=== PATIENT | male | born 1935 | race Caucasian/White ===

== ENCOUNTER 2017-01-31 08:00 | Outpatient (CLI) | payer MEDICARE | END 2017-01-31 08:01 | disposition home or self-care (01) | DX: I25.10 Atherosclerotic heart disease of native coronary artery without angina pectoris (principal); G60.9 Hereditary and idiopathic neuropathy, unspecified; I50.9 Heart failure, unspecified; C67.9 Malignant neoplasm of bladder, unspecified ==

== ENCOUNTER 2017-06-17 16:16 | Outpatient (CLI) | payer MEDICARE ==
[2017-06-17 19:53] LABS: BASOPHILS % (AUTO) 0.3 %; EOSINOPHILS # (AUTO) 0.3 10^3/uL (0.0-0.7); EOSINOPHILS % (AUTO) 3.3 %; HCT - HEMATOCRIT 43.1 % (42.0-52.0); HGB - HEMOGLOBIN 14.3 g/dL (14.0-18.0); LYMPHOCYTES # (AUTO) 1.7 10^3/uL (1.5-3.5); LYMPHOCYTES % (AUTO) 18.5 %; MEAN CORPUSCULAR HEMOGLOBIN 31.8 pg (27.0-31.0); MEAN CORPUSCULAR HGB CONC 33.1 g/dL (32.0-36.0); MEAN CORPUSCULAR VOLUME 96.1 fL (80.0-94.0); MEAN PLATELET VOLUME 10.6 fL (7.4-11.4); MONOCYTES # (AUTO) 0.9 10^3/uL (0.0-1.0); MONOCYTES % (AUTO) 9.6 %; NEUTROPHILS # (AUTO) 6.3 10^3/uL (1.5-6.6); NEUTROPHILS % (AUTO) 68.3 %; RED BLOOD COUNT 4.48 10^6/uL (4.70-6.10); RED CELL DISTRIBUTION WIDTH 14.2 % (12.0-15.0); UNCORRECTED WHITE BLOOD COUNT 9.3 x10^3/uL; WHITE BLOOD COUNT 9.3 x10^3/uL (4.8-10.8)
[2017-06-17 20:02] LABS: BILIRUBIN,TOTAL 0.9 mg/dL (0.2-1.0); CALCIUM 9.4 mg/dL (8.5-10.3); CREATININE 1.2 mg/dL (0.6-1.2); POTASSIUM 4.1 mmol/L (3.5-5.0); TOTAL PROTEIN 7.3 g/dL (6.7-8.2)
== END 2017-06-17 16:17 | disposition home or self-care (01) ==
LOC: LAB.WCP 16:16
PROVIDERS: ATTEND Family Medicine
DX: R14.0 Abdominal distension (gaseous) (principal)
CPT/HCPCS: 36415; 80053; 85025

== ENCOUNTER 2017-07-23 13:25 | Outpatient (CLI) | payer MEDICARE ==
[2017-07-23 20:00] LABS: BASOPHILS # (AUTO) 0.1 10^3/uL (0.0-0.1); BASOPHILS % (AUTO) 0.7 %; EOSINOPHILS # (AUTO) 0.3 10^3/uL (0.0-0.7); HCT - HEMATOCRIT 43.8 % (42.0-52.0); HGB - HEMOGLOBIN 14.1 g/dL (14.0-18.0); LYMPHOCYTES # (AUTO) 1.3 10^3/uL (1.5-3.5); MEAN CORPUSCULAR HGB CONC 32.2 g/dL (32.0-36.0); MEAN CORPUSCULAR VOLUME 96.2 fL (80.0-94.0); MEAN PLATELET VOLUME 10.9 fL (7.4-11.4); MONOCYTES # (AUTO) 0.8 10^3/uL (0.0-1.0); MONOCYTES % (AUTO) 7.6 %; NEUTROPHILS # (AUTO) 8.6 10^3/uL (1.5-6.6); NEUTROPHILS % (AUTO) 76.7 %; RED BLOOD COUNT 4.56 10^6/uL (4.70-6.10); RED CELL DISTRIBUTION WIDTH 14.2 % (12.0-15.0); UNCORRECTED WHITE BLOOD COUNT 11.2 x10^3/uL; WHITE BLOOD COUNT 11.2 x10^3/uL (4.8-10.8)
[2017-07-23 20:05] LABS: BILIRUBIN,TOTAL 0.9 mg/dL (0.2-1.0); BUN - BLOOD UREA NITROGEN 32 mg/dL (6-20); CALCIUM 9.4 mg/dL (8.5-10.3); CARBON DIOXIDE - CO2 27 mmol/L (21-32); CHLORIDE 104 mmol/L (101-111); CREATININE 1.2 mg/dL (0.6-1.2); GFR - MDRD 58 (>89); GLUCOSE 130 mg/dL (70-100); POTASSIUM 4.1 mmol/L (3.5-5.0); SODIUM 139 mmol/L (135-145); TOTAL PROTEIN 7.8 g/dL (6.7-8.2)
== END 2017-07-23 13:26 | disposition home or self-care (01) ==
LOC: LAB.WCP 13:25
PROVIDERS: ATTEND Family Medicine
DX: R53.83 Other fatigue (principal)
CPT/HCPCS: 36415; 80053; 84443; 85025

== ENCOUNTER → 2018-10-02 | Outpatient (CLI) | payer MEDICARE ==
[2018-10-02 13:17] LABS: BASOPHILS # (AUTO) 0.1 10^3/uL (0.0-0.1); BASOPHILS % (AUTO) 0.5 %; EOSINOPHILS # (AUTO) 0.3 10^3/uL (0.0-0.7); EOSINOPHILS % (AUTO) 2.2 %; HGB - HEMOGLOBIN 14.9 g/dL (14.0-18.0); LYMPHOCYTES # (AUTO) 2.3 10^3/uL (1.5-3.5); MEAN CORPUSCULAR HEMOGLOBIN 31.8 pg (27.0-31.0); MEAN CORPUSCULAR HGB CONC 33.1 g/dL (32.0-36.0); MEAN CORPUSCULAR VOLUME 96.2 fL (80.0-94.0); MEAN PLATELET VOLUME 10.1 fL (7.4-11.4); MONOCYTES # (AUTO) 0.8 10^3/uL (0.0-1.0); MONOCYTES % (AUTO) 7.1 %; NEUTROPHILS # (AUTO) 8.5 10^3/uL (1.5-6.6); NEUTROPHILS % (AUTO) 71.2 %; PLT - PLATELET COUNT 162 10^3/uL (130-450); RED CELL DISTRIBUTION WIDTH 14.6 % (12.0-15.0)
[2018-10-02 13:32] LABS: ALBUMIN 4.2 g/dL (3.2-5.5); ALBUMIN/GLOBULIN RATIO 1.2 (1.0-2.2); ALKALINE PHOSPHATASE 72 IU/L (42-121); ALT ALANINE AMINOTRANSFERASE 20 IU/L (10-60); AST ASPARTATE AMINOTRANSFERASE 27 IU/L (10-42); BILIRUBIN,TOTAL 0.9 mg/dL (0.2-1.0); BUN - BLOOD UREA NITROGEN 30 mg/dL (6-20); CALCIUM 9.5 mg/dL (8.5-10.3); CARBON DIOXIDE - CO2 28 mmol/L (21-32); CHLORIDE 107 mmol/L (101-111); CHOL/HDL RATIO 3.9 (<5.0); CHOLESTEROL 148 mg/dL; CREATININE 1.1 mg/dL (0.6-1.2); GFR - MDRD 64 (>89); GLUCOSE 97 mg/dL (70-100); HDL CHOLESTEROL 38 mg/dL; LDL CHOLESTEROL,CALCULATED 89 mg/dL; LDL/HDL RATIO 2.3 (<3.6); SODIUM 144 mmol/L (135-145); TOTAL PROTEIN 7.7 g/dL (6.7-8.2); VLDL CHOLESTEROL 21 mg/dL
== END ==
LOC: LAB.WCP 09:45
PROVIDERS: ATTEND Family Medicine
DX: I50.9 Heart failure, unspecified (principal); I10 Essential (primary) hypertension; E78.5 Hyperlipidemia, unspecified
CPT/HCPCS: 36415; 80053; 80061; 83721; 84443; 85025

== ENCOUNTER 2018-10-23 08:00 | Outpatient (CLI) | payer MEDICARE ==
[2018-10-23 13:14] LABS: BASOPHILS % (AUTO) 0.4 %; EOSINOPHILS # (AUTO) 0.3 10^3/uL (0.0-0.7); EOSINOPHILS % (AUTO) 3.3 %; HGB - HEMOGLOBIN 14.8 g/dL (14.0-18.0); LYMPHOCYTES # (AUTO) 1.6 10^3/uL (1.5-3.5); LYMPHOCYTES % (AUTO) 18.6 %; MEAN CORPUSCULAR HEMOGLOBIN 32.2 pg (27.0-31.0); MEAN CORPUSCULAR HGB CONC 33.5 g/dL (32.0-36.0); MEAN CORPUSCULAR VOLUME 96.3 fL (80.0-94.0); MEAN PLATELET VOLUME 10.8 fL (7.4-11.4); MONOCYTES # (AUTO) 0.9 10^3/uL (0.0-1.0); MONOCYTES % (AUTO) 10.5 %; NEUTROPHILS # (AUTO) 5.7 10^3/uL (1.5-6.6); NEUTROPHILS % (AUTO) 67.2 %; PLT - PLATELET COUNT 150 10^3/uL (130-450); RED BLOOD COUNT 4.59 10^6/uL (4.70-6.10); RED CELL DISTRIBUTION WIDTH 14.7 % (12.0-15.0); WHITE BLOOD COUNT 8.4 x10^3/uL (4.8-10.8)
[2018-10-23 14:00] LABS: PLATELET ESTIMATE, MANUAL NORMAL (130-450,000) (NORMAL); PLATELET MORPHOLOGY 1+ GIANT PLATELETS (NORMAL); RBC MORPHOLOGY (MULTIPLE) NORMAL APPEARANCE (NORMAL)
== END 2018-10-23 23:59 ==
LOC: LAB.WCP 08:00
PROVIDERS: ATTEND Family Medicine
DX: Z79.01 Long term (current) use of anticoagulants (principal)
CPT/HCPCS: 36415; 85025

== ENCOUNTER 2019-02-05 08:00 | Outpatient (CLI) | payer MEDICARE | END 2019-02-05 23:59 | disposition home or self-care (01) | LOC: LAB.WCP 08:00 | PROVIDERS: ATTEND Family Medicine | DX: I48.0 Paroxysmal atrial fibrillation (principal); Z79.01 Long term (current) use of anticoagulants | CPT/HCPCS: 81025 ==

== ENCOUNTER 2019-03-05 08:00 | Outpatient (CLI) | payer MEDICARE | END 2019-03-05 23:59 | disposition home or self-care (01) | LOC: LAB.WCP 08:00 | PROVIDERS: ATTEND Family Medicine | DX: I48.0 Paroxysmal atrial fibrillation (principal); Z79.01 Long term (current) use of anticoagulants ==

== ENCOUNTER 2019-03-11 10:23 | Day surgery (SDC) | payer MEDICARE ==
[~2019-03-11 10:23] MED LIST: CYCLOPENTOLATE 1% OPHTH DROPS 2 ML ONE; KETOROLAC 0.45% OPHTH DROPS ONE; PHENYLEPHRINE 2.5% OPHTH 2 ML DROPS ONE; PROPARACAINE 0.5% OPHTH DROPS 15 ML ONE
[2019-03-11] MEDS ORDERED: PROPARACAINE 0.5% OPHTH DROPS 15 ML LEFTEYE ONE (10:40)
[2019-03-11] MEDS ORDERED: KETOROLAC 0.45% OPHTH DROPS LEFTEYE ONE (10:40)
[2019-03-11] MEDS ORDERED: PHENYLEPHRINE 2.5% OPHTH 2 ML DROPS LEFTEYE ONE (10:40)
[2019-03-11] MEDS ORDERED: CYCLOPENTOLATE 1% OPHTH DROPS 2 ML LEFTEYE ONE (10:40)
--- NOTE | 2019-03-11 10:49 | ANESTHESIA ---
Pre-Anesthesia VS, & Labs - Diagnosis Left senile combined cataract - Procedure Left phaco with IOL implant Vital Signs: Temp Pulse Resp BP Pulse Ox 36.4 C L 77 22 142/90 H 96 03/11/19 10:31 03/11/19 10:31 03/11/19 10:31 03/11/19 10:31 03/11/19 10:31 Height 6 ft 1 in Weight (kg) 122.9 kg - NPO >8 hours, Other (Water with pills) - Lab Results Lab results reviewed: Yes Home Medications and Allergies Home Medications: Ambulatory Orders Allopurinol 300 mg PO DAILY 03/11/19 Atorvastatin Calcium 20 mg PO DAILY 03/11/19 Metoprolol Tartrate 100 mg PO BID 03/11/19 Warfarin Sodium 7.5 mg PO 03/11/19 Warfarin Sodium 10 mg PO 03/11/19 Allergies/Adverse Reactions: Allergies Allergy/AdvReac Type Severity Reaction Status Date / Time No Known Drug Allergies Allergy Verified 03/11/19 10:37 Anes History & Medical History - Anesthetic History Anesthesia Complications: reports: No previous complications Family history of Anesthesia Complications: Denies Family history of Malignant Hyperthermia: Denies - Medical History Cardiovascular: reports: None Pulmonary: reports: Sleep apnea Gastrointestinal: reports: None Urinary: reports: None, Other (History bladder cancer) Neuro: reports: None, Other (Balance problems) Musculoskeletal: reports: Osteoarthritis Endocrine/Autoimmune: reports: None Blood Disorders: reports: None Skin: reports: None Smoking Status: Former smoker Psychosocial: reports: No issues indicated - Surgical History General: Other (Umbilical hernia repair) Urologic: Bladder surgery Exam General: Alert Dental: Dentures full Upper Mouth Opening: Greater than 4 Fingerbreadths Neck Mobility: Limited Mallampati classification: II Thyromental Distance: 4-6 cm Respiratory: Lungs clear Cardiovascular: Other (Irregular) Neurological: Normal speech Mental/Cognitive Status: Alert/Oriented X3 Cognitive Status: Within normal limits Plan Anesthesia Type: MAC Consent for Procedure(s) Verified and Reviewed: Yes Code Status: Attempt Resuscitation ASA classification: 3-Severe systemic disease Is this case an emergency?: No
[2019-03-11] MEDS ORDERED: LACTATED RINGERS 500 ML IV ONE (10:59)
[2019-03-11] MEDS ORDERED: VANCOMYCIN OPHTHALMI 8MG/0.8ML 8 MG/0.8 ML SYRINGE IO ONE ×2 (11:41)
[2019-03-11] MEDS ORDERED: BRIMONIDINE 0.2% OPHTH DROPS 5 ML OPTH ONE (11:41)
[2019-03-11] MEDS ORDERED: TRIAMCIN/MOXIFLOX OPHTHALMIC 0.6 ML VIAL IO ONE ×2 (11:41)
[2019-03-11] MEDS ORDERED: BSS/LIDOCAINE/EPINEPHRINE 1 ML SYRINGE IO ONE ×2 (11:41)
[2019-03-11] MEDS ORDERED: EPINEPHrine 1 MG/ML AMP IVP ONE (11:41)
[2019-03-11] MEDS ORDERED: CHONDR SULF/HYALURONATE SYRINGE IO ONE (11:41)
[2019-03-11] MEDS ORDERED: TIMOLOL 0.5% OPHTH DROPS OPTH ONE (11:41)
[2019-03-11] MEDS ORDERED: MIDAZOLAM 2 MG/2 ML VIAL IVP ONE (11:53)
[2019-03-11] MEDS ORDERED: fentaNYL 100 MCG/2 ML VIAL IVP ONE (11:53)
[2019-03-11 12:03] VITALS: BP 141/88
--- NOTE | 2019-03-11 12:15 | OPERATIVE REPORT ---
DATE OF SERVICE: 03/11/2019 Physician: Reji Jorgensen MD PREOPERATIVE DIAGNOSIS: Visually significant cataract, left eye. This was his first cataract surger y. POSTOPERATIVE DIAGNOSIS: Visually significant cataract, left eye. This was his first with surgery. DESCRIPTION OF PROCEDURE: Phacoemulsification with posterior chamber intraocular lens implant, left eye. SURGEON: Reji Jorgensen MD ANESTHESIA: Monitored anesthesia care. COMPLICATIONS: None. OPERATIVE INDICATIONS: This is an 83-year-old man with progressive vision loss in the left eye due t o 3+ nuclear sclerotic cataract. Best corrected visual acuity was 20/40, with glare to 20/70 in the left eye. Indications for surgery are overall decrease in vision, difficulty seeing words on the com puter screen, difficulty reading, difficulty seeing words, closed caption or game scores on TV, and d ifficulty seeing street signs. He was consented at length concerning risks and benefits of cataract surgery, after which he expressed a desire to proceed with surgery. OPERATIVE PROCEDURE: The patient was taken into OR #3 and placed under monitored anesthesia care. A surgical timeout was conducted confirming correct patient, correct procedure, and correct surgical s ite. He was given topical anesthesia, prepped and draped in the usual sterile fashion. The eye was entered at the 6 and 3 o'clock positions. Intracameral Shugarcaine was injected into the anterior ch anthony, followed by Viscoat. A continuous-tear curvilinear capsulorrhexis was performed. The nucleus was hydrodissected and phacoemulsified. The cortex was evacuated using an infusion and aspiration. Provisc was injected in the capsular bag, and a 19.0 diopter intraocular lens inserted in the bag. Approximately 0.8 mL of a mixture of triamcinolone, moxifloxacin, and vancomycin was injected subconj unctivally in the superior quadrant for infection and inflammation prophylaxis. I and A was used to evacuate the viscoelastic materials. The eye was inflated to physiologic pressure using balanced steve t solution and found to be watertight. The patient was taken from the operating room in good conditi on and given postoperative instructions. TD: 03/11/2019 12:12
== END 2019-03-11 10:24 | disposition home or self-care (01) ==
LOC: SDS 10:23
PROVIDERS: ATTEND Ophthalmology
PROC: 08RK3JZ Replacement of Left Lens with Synthetic Substitute, Percutaneous Approach (ICD-10-PCS; principal; 2019-03-11 11:30)
DX: H25.12 Age-related nuclear cataract, left eye (principal); I10 Essential (primary) hypertension; I48.91 Unspecified atrial fibrillation; G47.33 Obstructive sleep apnea (adult) (pediatric); Z87.891 Personal history of nicotine dependence
CPT/HCPCS: 66984; A9270; J3490; V2632

== ENCOUNTER 2019-03-19 08:00 | Outpatient (CLI) | payer MEDICARE | END 2019-03-19 08:01 | disposition home or self-care (01) | LOC: LAB.WCP 08:00 | PROVIDERS: ATTEND Family Medicine | DX: I48.91 Unspecified atrial fibrillation (principal); Z79.01 Long term (current) use of anticoagulants ==

== ENCOUNTER 2019-03-26 08:00 | Outpatient (CLI) | payer MEDICARE | END 2019-03-26 23:59 | disposition home or self-care (01) | LOC: LAB.WCP 08:00 | PROVIDERS: ATTEND Family Medicine | DX: I48.0 Paroxysmal atrial fibrillation (principal); Z79.01 Long term (current) use of anticoagulants ==

== ENCOUNTER 2019-04-09 08:00 | Outpatient (CLI) | payer MEDICARE | END 2019-04-09 23:59 | disposition home or self-care (01) | LOC: LAB.WCP 08:00 | PROVIDERS: ATTEND Family Medicine | DX: I48.91 Unspecified atrial fibrillation (principal); Z79.01 Long term (current) use of anticoagulants ==

== ENCOUNTER 2019-04-30 08:00 | Outpatient (CLI) | payer MEDICARE | END 2019-04-30 23:59 | disposition home or self-care (01) | LOC: LAB.WCP 08:00 | PROVIDERS: ATTEND Family Medicine | DX: I48.91 Unspecified atrial fibrillation (principal); Z79.01 Long term (current) use of anticoagulants ==

== ENCOUNTER 2019-04-30 08:55 | Outpatient (CLI) | payer MEDICARE ==
[2019-04-30 14:12] LABS: CHOL/HDL RATIO 4.4 (<5.0); CHOLESTEROL 135 mg/dL; HDL CHOLESTEROL 31 mg/dL; LDL CHOLESTEROL,CALCULATED 83 mg/dL; LDL/HDL RATIO 2.7 (<3.6); VLDL CHOLESTEROL 21 mg/dL
== END 2019-04-30 23:59 | disposition home or self-care (01) ==
LOC: LAB.WCP 08:55
PROVIDERS: ATTEND Hospitalist
DX: I25.10 Atherosclerotic heart disease of native coronary artery without angina pectoris (principal)
CPT/HCPCS: 36415; 80061; 83721

== ENCOUNTER 2019-05-13 09:11 | Day surgery (SDC) | payer MEDICARE ==
[2019-05-13] MEDS ORDERED: LACTATED RINGERS 500 ML IV ONE (09:24)
[2019-05-13] MEDS ORDERED: PROPARACAINE 0.5% OPHTH DROPS 15 ML RIGHTEYE ONE ×2 (09:25→10:22)
[2019-05-13] MEDS ORDERED: KETOROLAC 0.45% OPHTH DROPS RIGHTEYE ONE (09:25)
[2019-05-13] MEDS ORDERED: PHENYLEPHRINE 2.5% OPHTH 2 ML DROPS RIGHTEYE ONE (09:25)
[2019-05-13] MEDS ORDERED: CYCLOPENTOLATE 1% OPHTH DROPS 2 ML RIGHTEYE ONE (09:25)
--- NOTE | 2019-05-13 09:40 | ANESTHESIA ---
Pre-Anesthesia VS, & Labs - Diagnosis R nuclear sclerotic - Procedure R extraction cataract w/IOL Vital Signs: Temp Pulse Resp BP Pulse Ox 36.2 C L 61 12 147/92 H 97 05/13/19 09:28 05/13/19 09:28 05/13/19 09:28 05/13/19 09:28 05/13/19 09:28 Height 6 ft 1 in Weight (kg) 122.6 kg - NPO >8 hours Last Fluid Intake: sips w meds this AM Home Medications and Allergies Allopurinol 300 mg PO DAILY 03/11/19 Atorvastatin Calcium 20 mg PO DAILY 03/11/19 Metoprolol Tartrate 100 mg PO BID 03/11/19 Warfarin Sodium 7.5 mg PO DAILY 03/11/19 Warfarin Sodium 10 mg PO DAILY 03/11/19 Allergies/Adverse Reactions: Allergies Allergy/AdvReac Type Severity Reaction Status Date / Time No Known Drug Allergies Allergy Verified 03/11/19 10:37 Anes History & Medical History - Anesthetic History Anesthesia Complications: reports: No previous complications Family history of Anesthesia Complications: Denies Family history of Malignant Hyperthermia: Denies - Medical History Cardiovascular: reports: None Pulmonary: reports: Sleep apnea Gastrointestinal: reports: None Urinary: reports: None, Other Neuro: reports: None, Other (Balance problems) Musculoskeletal: reports: Osteoarthritis Endocrine/Autoimmune: reports: None Blood Disorders: reports: None Skin: reports: None Smoking Status: Former smoker - Surgical History General: Other Urologic: Bladder surgery Exam General: Alert, Oriented x3, Cooperative Dental: Dentures full Upper, Other (recent nose bleed) Mouth Openin Fingerbreadth Neck Mobility: Reduced Mallampati classification: II Thyromental Distance: 4-6 cm Respiratory: Lungs clear, Normal breath sounds Cardiovascular: Other (AF (chronic)) Neurological: Normal speech Mental/Cognitive Status: Alert/Oriented X3 Cognitive Status: Within normal limits Plan Anesthesia Type: MAC Consent for Procedure(s) Verified and Reviewed: Yes Code Status: Attempt Resuscitation ASA classification: 3-Severe systemic disease Is this case an emergency?: No
[2019-05-13] MEDS ORDERED: EPINEPHrine 1 MG/ML AMP IVP ONE (10:21)
[2019-05-13] MEDS ORDERED: CHONDR SULF/HYALURONATE SYRINGE IO ONE (10:21)
[2019-05-13] MEDS ORDERED: BRIMONIDINE 0.2% OPHTH DROPS 5 ML OPTH ONE (10:21)
[2019-05-13] MEDS ORDERED: TIMOLOL 0.5% OPHTH DROPS OPTH ONE (10:21)
[2019-05-13] MEDS ORDERED: BSS/LIDOCAINE/EPINEPHRINE 1 ML SYRINGE IO ONE (10:22)
[2019-05-13] MEDS ORDERED: TRIAMCIN/MOXIFLOX OPHTHALMIC 0.6 ML VIAL IO ONE ×2 (10:22→11:12)
[2019-05-13] MEDS ORDERED: MIDAZOLAM 2 MG/2 ML VIAL IVP ONE (10:23)
[2019-05-13] MEDS ORDERED: VANCOMYCIN OPHTHALMI 8MG/0.8ML 8 MG/0.8 ML SYRINGE IO ONE ×2 (10:23→11:12)
[2019-05-13 10:50] VITALS: BP 135/74
--- NOTE | 2019-05-13 11:07 | OPERATIVE REPORT ---
DATE OF SERVICE: 05/13/2019 Physician: Reji Jorgensen MD PREOPERATIVE DIAGNOSIS: Visually significant cataract, right eye. Cataract surgery was performed on the left eye 03/11/2019. POSTOPERATIVE DIAGNOSIS: Visually significant cataract, right eye. Cataract surgery was performed o n the left eye 03/11/2019. PROCEDURE: Phacoemulsification with posterior chamber intraocular lens implant, right eye. SURGEON: Reji Jorgensen MD ANESTHESIA: Monitored anesthesia care. COMPLICATIONS: None. OPERATIVE INDICATIONS: This is an 84-year-old man with progressive vision progressive vision loss in the right eye due to 3+ nuclear sclerotic cataract. Best corrected visual acuity was 20/30 with gla re to 20/125 in the right eye. Indications for surgery were difficulty seeing words on the computer screen and difficulty reading, difficulty seeing words, closed captions or game scores on TV and diff iculty seeing street signs. He was consented at length concerning risks and benefits of cataract jeremy julito, after which he expressed a desire to proceed with surgery. OPERATIVE PROCEDURE: Patient was taken to OR #3 and placed under monitored anesthesia care. A surgi reyna timeout was conducted confirming the correct patient, correct procedure, and correct surgical sit e. He was given topical anesthesia and then prepped and draped in the usual sterile fashion. The ey e was entered at the 12 and 9 o'clock positions. Intracameral Shugarcaine was injected into the ante rior chamber, followed by Viscoat. A continuous-tear curvilinear capsulorrhexis was performed. The nucleus was hydrodissected and phacoemulsified. The cortex was evacuated using automated infusion an d aspiration. Provisc was injected into the capsular bag, and a 19.0 diopter intraocular lens was in serted into the bag. Approximately 0.8 mL of a mixture of triamcinolone, moxifloxacin and vancomycin was injected subconjunctivally in the superior quadrant for infection and inflammation prophylaxis. I and A was used to evacuate the viscoelastic material and the eye was inflated to physiologic press ure using balanced salt solution and found to be watertight. The patient was taken from the [facility] room in good condition and given postoperative instructions. TD: 05/13/2019 10:43
[2019-05-13] MEDS ORDERED: BRIMONIDINE 0.2% OPHTH DROPS 5 ML ONE (11:12)
[2019-05-13] MEDS ORDERED: TIMOLOL 0.5% OPHTH DROPS ONE (11:12)
[2019-05-13] MEDS ORDERED: BSS/LIDOCAINE/EPINEPHRINE 1 ML SYRINGE ONE (11:12)
[2019-05-13] MEDS ORDERED: EPINEPHrine 1 MG/ML AMP ONE (11:12)
== END 2019-05-13 09:12 | disposition home or self-care (01) ==
LOC: SDS 09:11
PROVIDERS: ATTEND Ophthalmology
PROC: 08RJ3JZ Replacement of Right Lens with Synthetic Substitute, Percutaneous Approach (ICD-10-PCS; principal; 2019-05-13 10:30)
DX: H25.11 Age-related nuclear cataract, right eye (principal); I48.91 Unspecified atrial fibrillation; I10 Essential (primary) hypertension; G47.30 Sleep apnea, unspecified; M19.90 Unspecified osteoarthritis, unspecified site; Z87.891 Personal history of nicotine dependence; Z79.01 Long term (current) use of anticoagulants
CPT/HCPCS: 66984; A9270; J3490; V2632

== ENCOUNTER 2019-06-02 13:47 | Outpatient (CLI) | payer MEDICARE ==
[2019-06-02 19:26] LABS: ALBUMIN 4.2 g/dL (3.2-5.5); ALBUMIN/GLOBULIN RATIO 1.2 (1.0-2.2); BILIRUBIN,TOTAL 1.3 mg/dL (0.2-1.0); CALCIUM 9.6 mg/dL (8.5-10.3); CREATININE 1.2 mg/dL (0.6-1.2); TOTAL PROTEIN 7.8 g/dL (6.7-8.2)
== END 2019-06-02 13:48 | disposition home or self-care (01) ==
LOC: LAB.WCP 13:47
PROVIDERS: ATTEND Family Medicine
DX: I10 Essential (primary) hypertension (principal)
CPT/HCPCS: 36415; 80053

== ENCOUNTER 2019-06-10 09:00 | Outpatient (CLI) | payer MEDICARE ==
[2019-06-10 13:03] LABS: CALCIUM 9.7 mg/dL (8.5-10.3); CREATININE 1.2 mg/dL (0.6-1.2)
[2019-06-14 15:36] LABS: ALBUMIN 3.7 g/dL (3.8-4.8); ALPHA 1 GLOBULIN 0.4 g/dL (0.2-0.3); ALPHA 2 GLOBULIN 0.9 g/dL (0.5-0.9); BETA 1 GLOBULIN 0.4 g/dL (0.4-0.6); BETA 2 GLOBULIN 0.4 g/dL (0.2-0.5); GAMMA GLOBULIN 1.1 g/dL (0.8-1.7)
== END 2019-06-10 09:01 | disposition home or self-care (01) ==
LOC: LAB.WCP 09:00
PROVIDERS: ATTEND Family Medicine
DX: M60.9 Myositis, unspecified (principal)
CPT/HCPCS: 36415; 80048; 81599; 82550; 82570; 84155; 84156; 84165; 84166; 85651

== ENCOUNTER 2019-07-02 08:00 | Outpatient (CLI) | payer MEDICARE | END 2019-07-02 23:59 | disposition home or self-care (01) | LOC: LAB.WCP 08:00 | PROVIDERS: ATTEND Family Medicine | DX: I48.91 Unspecified atrial fibrillation (principal); Z79.01 Long term (current) use of anticoagulants ==

== ENCOUNTER 2019-07-30 08:00 | Outpatient (CLI) | payer MEDICARE | END 2019-07-30 23:59 | disposition home or self-care (01) | LOC: LAB.WCP 08:00 | PROVIDERS: ATTEND Family Medicine | DX: I48.0 Paroxysmal atrial fibrillation (principal); Z79.01 Long term (current) use of anticoagulants ==

== ENCOUNTER 2019-08-04 07:09 | Outpatient (CLI) | payer MEDICARE | END 2019-08-04 07:10 | disposition short-term general hospital (02) | LOC: EMS 07:09 | PROVIDERS: ATTEND Surgery | DX: R20.0 Anesthesia of skin (principal); R47.9 Unspecified speech disturbances | CPT/HCPCS: A0425; A0427; A0888 ==

== ENCOUNTER 2019-08-28 00:08 | Outpatient (CLI) | payer MEDICARE | END 2019-08-28 00:09 | disposition EMS.NT | LOC: EMS 00:08 | PROVIDERS: ATTEND Surgery | DX: Z03.89 Encounter for observation for other suspected diseases and conditions ruled out (principal) ==

== ENCOUNTER 2019-08-28 01:45 | Outpatient (CLI) | payer MEDICARE | END 2019-08-28 01:46 | disposition critical access hospital (66) | LOC: EMS 01:45 | PROVIDERS: ATTEND Surgery | DX: Z03.89 Encounter for observation for other suspected diseases and conditions ruled out (principal) | CPT/HCPCS: A0425; A0428; A0429 ==

== ENCOUNTER 2019-08-28 01:53 | Emergency (ER) | payer MEDICARE ==
--- NOTE | 2019-08-28 02:04 | ED Physician Documentation ---
History of Present Illness - Stated complaint Stated Complaint: AMS - Chief complaint Chief Complaint: Neuro - History obtained from History obtained from: Patient, Family, EMS - History of Present Illness Timing: Today - Additonal information Additional information: 84 y/o male recovering from neck surgery is a resident at [facility] after a 6 week hospitalization at [facility]. He has developed a problem with swallowing and he has a feeding tube in place. Today he had some medication down the tube and had coughing and choking after administration. He is brought here [facility] for diagnostics for aspiration pneumonia. Review of Systems Constitutional: reports: Fatigue. denies: Fever Eyes: denies: Decreased vision Ears: denies: Ear pain Nose: denies: Rhinorrhea / runny nose, Congestion Throat: denies: Sore throat Cardiac: denies: Chest pain / pressure, Palpitations, Pedal edema, Calf pain Respiratory: reports: Cough GI: denies: Abdominal Pain, Nausea, Vomiting : denies: Dysuria, Frequency PD PAST MEDICAL HISTORY - Past Medical History Cardiovascular: None Respiratory: Sleep apnea Neuro: None, Other (Balance problems) Endocrine/Autoimmune: None GI: None : None, Other HEENT: Chronic hearing loss, Other Psych: None Musculoskeletal: Osteoarthritis Derm: None - Past Surgical History General: Other - Present Medications Home Medications: Ambulatory Orders Medication Instructions Recorded Confirmed Allopurinol 300 mg PO DAILY 03/11/19 08/28/19 Warfarin Sodium 7.5 mg NG QPM 03/11/19 08/28/19 Warfarin Sodium 10 mg NG QPM 03/11/19 08/28/19 Acetaminophen 500 mg NG Q8HR PRN 08/28/19 08/28/19 Amox/Clav 875/125 [Augmentin 1 tab NG BID 08/28/19 08/28/19 875/125] Amoxicillin/Potassium Clav 10 ml PO BID #200 ml 08/28/19 [Amox-Clav 400-57 mg/5 ml Susp] Bisacodyl Supp [Dulcolax Supp] 10 mg NV PRN 08/28/19 Cholecalciferol (Vitamin D3) 1,000 unit NG DAILY 08/28/19 08/28/19 [Vitamin D3] Folic Acid 1 mg NG DAILY 08/28/19 08/28/19 Gabapentin 300 mg NG BID 08/28/19 08/28/19 Ipratropium/Albuterol Sulfate 3 ml IH Q4HR PRN 08/28/19 08/28/19 [Iprat-Albut 0.5-3(2.5) mg/3 ml] Lidocaine Patch 5% [Lidoderm Patch] 1 applic TOP DAILY 08/28/19 08/28/19 Melatonin 6 mg NG QPM 08/28/19 08/28/19 Metoprolol Succinate 100 mg NG BID 08/28/19 08/28/19 Polyethylene Glycol 3350 [Miralax] 17 packet NG DAILY 08/28/19 08/28/19 Sennosides [Senna Laxative] 2 tab NG BID 08/28/19 08/28/19 Tamsulosin HCl [Flomax] 0.8 mg NG DAILY 08/28/19 08/28/19 - Allergies Allergies/Adverse Reactions: Allergies Allergy/AdvReac Type Severity Reaction Status Date / Time lisinopril Allergy Unknown Verified 08/28/19 03:41 - Social History Smoking Status: Former smoker PD ED PE NORMAL - Vitals Vital signs reviewed: Yes - General General: Alert and oriented X 3, No acute distress, Well developed/nourished, Other (in a hard collar with an NG tube in place for feeding. ) - HEENT HEENT: Atraumatic, PERRL, EOMI - Neck Neck: Supple, no meningeal sign - Cardiac Cardiac: RRR, No murmur - Respiratory Respiratory: No respiratory distress, Other (rhonchi in the right base ) - Abdomen Abdomen: Soft, Non tender - Back Back: No CVA TTP, No spinal TTP - Derm Derm: Normal color, Warm and dry, No rash - Extremities Extremities: No deformity, No edema - Neuro Neuro: Alert and oriented X 3, facility service associate 2-12 intact, No motor deficit, No sensory deficit, Normal speech Eye Opening: Spontaneous Motor: Obeys Commands Verbal: Oriented GCS Score: 15 - Psych Psych: Normal mood, Normal affect Results - Vitals Vitals: Vital Signs - 24 hr 08/28/19 08/28/19 08/28/19 01:56 02:30 02:58 Temperature 37.4 C Heart Rate 98 104 H 106 H Respiratory 24 32 H 31 H Rate Blood Pressure 121/98 H 139/93 H 139/93 H O2 Saturation 89 L 97 95 08/28/19 03:33 Temperature Heart Rate 97 Respiratory 23 Rate Blood Pressure 135/91 H O2 Saturation 98 Oxygen O2 Source Nasal cannula Oxygen Flow Rate 2 - Labs Labs: Laboratory Tests 08/28/19 08/28/19 08/28/19 02:32 02:32 02:32 WBC 13.2 H RBC 3.77 L Hgb 11.9 L Hct 38.7 L MCV 102.7 H MCH 31.6 H MCHC 30.7 L RDW 15.2 H Plt Count 275 MPV 11.0 Neut # (Auto) [employer] Lymph # (Auto) [employer] Grundy # (Auto) [employer] Eos # (Auto) [employer] Baso # (Auto) [employer] Absolute Nucleated RBC [employer] Total Counted 100 Band Neuts % (Manual) 0 Abnorm Lymph % (Manual) 0 Nucleated RBC % [employer] Neutrophils # (Manual) 9.2 H Lymphocytes # (Manual) 1.6 Monocytes # (Manual) 0.9 Eosinophils # (Manual) 1.2 H Basophils # (Manual) 0.3 H Differential Comment MANUAL DIFFERENTIAL WBC Morphology NORMAL APPEARANCE Platelet Estimate NORMAL (130-450,000) Platelet Morphology NORMAL APPEARANCE RBC Morph Micro Appear NORMAL APPEARANCE Sodium 143 Potassium 5.1 H Chloride 101 Carbon Dioxide 32 Anion Gap 10.0 BUN 37 H Creatinine 1.0 Estimated GFR (MDRD) 71 L Glucose 112 H Lactic Acid 1.2 Calcium 9.7 Total Bilirubin 0.7 AST 31 ALT 45 Alkaline Phosphatase 108 Total Protein 8.1 Albumin 3.5 Globulin 4.6 H Albumin/Globulin Ratio 0.8 L Lipase 42 - Rads (name of study) chest 2 view Radiology: Prelim report reviewed (Impression: 1. Low lung volumes with bibasilar opacities, probably atelectasis. Mild enlargement of the cardiac silhouette, likely accentuated by low lung volumes.), EMP read indepedently, See rad report Procedures - IVC sono (time) 0300 Bedside IVC sono: IVC measures (cm) (1.22), Dehydration (est 1 liter deficit) PD MEDICAL DECISION MAKING - ED course Complexity details: reviewed old records, reviewed results, re-evaluated patient, considered differential, d/w patient, d/w family ED course: 84 y/o male s/p cervical procedure and subdural has a problem with swallowing and he has a feeding tube in place. Today he had an aspiration event and on exam he has rhonchi in the right base and appearance of infiltrate in the right base. He has not been getting his feedings today and he is now dehydrated. He is administered IV saline and unasyn IV and we will start him on some augmentin. The tube appears to end in the stomach and should be OK for use. Departure - Departure Disposition: 01 Home, Self Care Clinical Impression: Dehydration Aspiration pneumonia Qualifiers: Aspiration pneumonia type: unspecified Laterality: right Lung location: lower lobe of lung Qualified Code(s): J69.0 - Pneumonitis due to inhalation of food and vomit Condition: Stable Instructions: ED Dehydration, Aspiration Dysphagia, ED Pneumonia Adult Follow-Up: Aaron Young MD [Primary Care Provider] - Prescriptions: Amoxicillin/Potassium Clav [Amox-Clav 400-57 mg/5 ml Susp] 10 ml PO BID #200 ml Comments: The tube appears well positioned and is "OK" for use.
[2019-08-28 02:39] LABS: BASOPHILS % (AUTO) 0.6 %; EOSINOPHILS % (AUTO) 8.5 %; HGB - HEMOGLOBIN 11.9 g/dL (14.0-18.0); LYMPHOCYTES % (AUTO) 13.1 %; MEAN CORPUSCULAR HEMOGLOBIN 31.6 pg (27.0-31.0); MEAN CORPUSCULAR HGB CONC 30.7 g/dL (32.0-36.0); MEAN CORPUSCULAR VOLUME 102.7 fL (80.0-94.0); MONOCYTES % (AUTO) 9.7 %; NEUTROPHILS % (AUTO) 67.1 %; PLT - PLATELET COUNT 275 10^3/uL (130-450); RED BLOOD COUNT 3.77 10^6/uL (4.70-6.10); RED CELL DISTRIBUTION WIDTH 15.2 % (12.0-15.0); WHITE BLOOD COUNT 13.2 x10^3/uL (4.8-10.8)
[2019-08-28 02:44] LABS: ABNORMAL LYMPHS % (MANUAL) 0 %; BAND NEUTROPHILS % (MANUAL) 0 %
[2019-08-28 02:52] LABS: ALBUMIN 3.5 g/dL (3.2-5.5); ALBUMIN/GLOBULIN RATIO 0.8 (1.0-2.2); BILIRUBIN,TOTAL 0.7 mg/dL (0.2-1.0); CALCIUM 9.7 mg/dL (8.5-10.3); TOTAL PROTEIN 8.1 g/dL (6.7-8.2)
--- NOTE | 2019-08-28 02:56 | XRAY Report ---
Reason: right base rhonchi Procedure Date: 08/28/2019 Accession Number: [id number] / [id number] Procedure: XR - Chest 2 View X-Ray CPT Code: 27683 FULL RESULT: EXAM: CHEST RADIOGRAPHY EXAM DATE: 08/28/2019 02:31 AM. CLINICAL HISTORY: Right base rhonchi. COMPARISON: CXR dated 06/17/2017 3:34 PM. TECHNIQUE: 2 views. 3 images. FINDINGS: Lungs/Pleura: Low lung volumes with bibasilar opacities. No significant effusion or pneumothorax. Mediastinum: Mild enlargement of cardiac silhouette. No significant mediastinal widening allowing for limitations of exam. Other: None. IMPRESSION: 1. Low lung volumes with bibasilar opacities, probably atelectasis. 2. Mild enlargement of cardiac silhouette, likely accentuated by low lung volumes. RADIA
[2019-08-28 02:59] LABS: BASOPHILS # (MANUAL) 0.3 10^3/uL (0-0.1); BASOPHILS % (MANUAL) 2 %; EOSINOPHILS # (MANUAL) 1.2 10^3/uL (0-0.7); LYMPHOCYTES # (MANUAL) 1.6 10^3/uL (1.5-3.5); LYMPHOCYTES % (MANUAL) 12 %; MONOCYTES # (MANUAL) 0.9 10^3/uL (0.0-1.0); PLATELET ESTIMATE, MANUAL NORMAL (130-450,000) (NORMAL); PLATELET MORPHOLOGY NORMAL APPEARANCE (NORMAL); RBC MORPHOLOGY (MULTIPLE) NORMAL APPEARANCE (NORMAL)
[2019-08-28] MEDS ORDERED: SODIUM CHLORIDE 0.9% 1,000 ML IV ONE (03:12)
[2019-08-28 03:16] LABS: DIFFERENTIAL COMMENT MANUAL DIFFERENTIAL
[2019-08-28] MEDS ORDERED: AMPICILLIN/SULBACTAM 1.5 GM in SODIUM CHLORIDE 0.9% MINIBAG 100 ML IV STA (03:18)
[2019-08-28 03:58] VITALS: BP 110/96
== END 2019-08-28 04:22 | disposition home or self-care (01) ==
LOC: EDUNIT# → ED 01:53
DX: J69.0 Pneumonitis due to inhalation of food and vomit (principal); E86.0 Dehydration; Z98.890 Other specified postprocedural states; Z97.8 Presence of other specified devices; Z79.01 Long term (current) use of anticoagulants; Z87.891 Personal history of nicotine dependence
CPT/HCPCS: 36415; 71046; 80053; 83605; 83690; 85025; 87040; 99284

== ENCOUNTER 2019-08-28 04:26 | Outpatient (CLI) | payer MEDICARE | END 2019-08-28 04:27 | LOC: EMS 04:26 | PROVIDERS: ATTEND Surgery | DX: J69.0 Pneumonitis due to inhalation of food and vomit (principal); M43.22 Fusion of spine, cervical region; Z74.01 Bed confinement status ==

== ENCOUNTER 2019-09-07 10:41 | Outpatient (CLI) | payer MEDICARE | END 2019-09-07 10:42 | disposition critical access hospital (66) | LOC: EMS 10:41 | PROVIDERS: ATTEND Surgery | DX: R09.89 Other specified symptoms and signs involving the circulatory and respiratory systems (principal) ==

== ENCOUNTER 2019-09-07 10:49 | Emergency (ER) | payer MEDICARE ==
--- NOTE | 2019-09-07 11:49 | ED Physician Documentation ---
History of Present Illness - Stated complaint Stated Complaint: POSS ASPIRATION - Chief complaint Chief Complaint: Resp - History obtained from History obtained from: Patient, Family - History of Present Illness Timing: Today Pain level max: 0 Pain level now: 0 - Additonal information Additional information: 84-year-old male is currently residing at [facility] after neck surgery. He wears oxygen 24/7 there. They noticed that when he sleeps his oxygen levels decreased. His oxygen level decreased after a coughing episode today. No fevers. He is supposed to have a CPAP but does not have his machine. No vomiting. Nothing makes it better or worse. He is on warfarin. Was recently treated for a subdural hemorrhage as well. Family states that the subdural hemorrhage has not been reimaged since being placed back on the warfarin. Review of Systems Ten Systems: 10 systems reviewed and negative Constitutional: denies: Fever, Chills Ears: denies: Ear pain Nose: denies: Rhinorrhea / runny nose, Congestion : denies: Dysuria Skin: denies: Rash Musculoskeletal: denies: Back pain Neurologic: reports: Generalized weakness (States unable to get out of bed. This is why he is at [facility], for rehab). denies: Focal weakness, Numbness PD PAST MEDICAL HISTORY - Past Medical History Cardiovascular: None Respiratory: Sleep apnea Neuro: None, Other (Balance problems) Endocrine/Autoimmune: None GI: None : None, Other HEENT: Chronic hearing loss, Other Psych: None Musculoskeletal: Osteoarthritis Derm: None - Past Surgical History Past Surgical History: Yes General: Other - Present Medications Home Medications: Ambulatory Orders Medication Instructions Recorded Confirmed Allopurinol 300 mg PO DAILY 03/11/19 08/28/19 Warfarin Sodium 7.5 mg NG QPM 03/11/19 08/28/19 Warfarin Sodium 10 mg NG QPM 03/11/19 08/28/19 Acetaminophen 500 mg NG Q8HR PRN 08/28/19 08/28/19 Amox/Clav 875/125 [Augmentin 1 tab NG BID 08/28/19 08/28/19 875/125] Amoxicillin/Potassium Clav 10 ml PO BID #200 ml 08/28/19 [Amox-Clav 400-57 mg/5 ml Susp] Bisacodyl Supp [Dulcolax Supp] 10 mg KS PRN 08/28/19 Cholecalciferol (Vitamin D3) 1,000 unit NG DAILY 08/28/19 08/28/19 [Vitamin D3] Folic Acid 1 mg NG DAILY 08/28/19 08/28/19 Gabapentin 300 mg NG BID 08/28/19 08/28/19 Ipratropium/Albuterol Sulfate 3 ml IH Q4HR PRN 08/28/19 08/28/19 [Iprat-Albut 0.5-3(2.5) mg/3 ml] Lidocaine Patch 5% [Lidoderm Patch] 1 applic TOP DAILY 08/28/19 08/28/19 Melatonin 6 mg NG QPM 08/28/19 08/28/19 Metoprolol Succinate 100 mg NG BID 08/28/19 08/28/19 Polyethylene Glycol 3350 [Miralax] 17 packet NG DAILY 08/28/19 08/28/19 Sennosides [Senna Laxative] 2 tab NG BID 08/28/19 08/28/19 Tamsulosin HCl [Flomax] 0.8 mg NG DAILY 08/28/19 08/28/19 - Allergies Allergies/Adverse Reactions: Allergies Allergy/AdvReac Type Severity Reaction Status Date / Time lisinopril Allergy Unknown Verified 09/07/19 10:54 - Social History Does the pt smoke?: No Smoking Status: Former smoker Does the pt drink ETOH?: No Does the pt have substance abuse?: No - Immunizations Immunizations are current?: Yes - POLST Patient has POLST: Yes PD ED PE NORMAL - Vitals Vital signs reviewed: Yes - General General: Alert and oriented X 3, No acute distress, Well developed/nourished - HEENT HEENT: PERRL, Moist mucous membranes, Other (Dobbhoff tube in place) - Neck Neck: Supple, no meningeal sign - Cardiac Cardiac: RRR, Strong equal pulses - Respiratory Respiratory: No respiratory distress, Clear bilaterally - Abdomen Abdomen: Soft, Non tender, Non distended - Derm Derm: Warm and dry - Extremities Extremities: No edema, No calf tenderness / cord - Neuro Neuro: Alert and oriented X 3 - Psych Psych: Normal mood, Normal affect Results - Vitals Vitals: Vital Signs - 24 hr 09/07/19 09/07/19 09/07/19 10:50 11:12 11:43 Temperature 36.6 C Heart Rate 94 124 H 121 H Respiratory 22 18 20 Rate Blood Pressure 115/60 125/86 H 107/67 O2 Saturation 100 99 94 09/07/19 09/07/19 09/07/19 13:13 13:40 14:02 Temperature 36.6 C Heart Rate 121 H 109 H 120 H Respiratory 24 28 H 16 Rate Blood Pressure 128/117 H 124/91 H 120/74 O2 Saturation 93 94 Oxygen O2 Source Room air - Labs Labs: Laboratory Tests 09/07/19 09/07/19 09/07/19 12:37 12:37 12:37 WBC 12.3 H RBC 4.23 L Hgb 13.6 L Hct 43.0 MCV 101.7 H MCH 32.2 H MCHC 31.6 L RDW 14.3 Plt Count 187 MPV 12.0 H Neut # (Auto) 8.4 H Lymph # (Auto) 2.0 Campbell # (Auto) 1.2 H Eos # (Auto) 0.6 Baso # (Auto) 0.1 Absolute Nucleated RBC 0.00 Nucleated RBC % 0.0 PT 16.8 H INR 1.5 H Sodium 140 Potassium 4.5 Chloride 93 L Carbon Dioxide 34 H Anion Gap 13.0 BUN 44 H Creatinine 1.0 Estimated GFR (MDRD) 71 L Glucose 123 H Calcium 10.0 Total Bilirubin 0.8 AST 23 ALT 24 Alkaline Phosphatase 112 Total Protein 7.9 Albumin 3.9 Globulin 4.0 Albumin/Globulin Ratio 1.0 Lipase 35 - Rads (name of study) cxr Radiology: Prelim report reviewed, EMP read contemporaneously, See rad report (Moderate right diaphragm elevation with right basilar atelectasis. 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 2. No acute intracranial hemorrhage. 3. No significant mass-effect or shift. ) PD MEDICAL DECISION MAKING - ED course Complexity details: reviewed results, re-evaluated patient, considered differential, d/w patient, d/w family ED course: No acute findings on x-ray, head CT or laboratory testing. Appears to have atelectasis. Given an incentive spirometer and training. Recommend he have a follow-up sleep study to renew his CPAP. No evidence of pneumonia, sepsis. No evidence of pulmonary embolus. He has 95 to 96% on room air here when he is awake. Patient and family counseled regarding signs and symptoms for which I believe and urgent re-evaluation would be necessary. Patient with good understanding of and agreement to plan and is comfortable going home at this time This document was made in part using voice recognition software. While efforts are made to proofread this document, sound alike and grammatical errors may occur. Departure - Departure Disposition: 01 Home, Self Care Clinical Impression: Sleep apnea Qualifiers: Sleep apnea type: unspecified type Qualified Code(s): G47.30 - Sleep apnea, unspecified Atrial fibrillation Qualifiers: Atrial fibrillation type: unspecified Qualified Code(s): I48.91 - Unspecified atrial fibrillation Condition: Good Instructions: ED Afib Follow-Up: Aaron Young MD [Primary Care Provider] - Within 1 week Comments: Return if you worsen. Your CT scan and x-ray do not show any acute abnormalities other than atelectasis in your right lung. You need to continue to take deep breaths. You should be using a CPAP machine at night as well. If you do not currently have one, you should have a repeat sleep study. Discharge Date/Time: 09/07/19 14:24
[2019-09-07 12:40] LABS: BASOPHILS # (AUTO) 0.1 10^3/uL (0.0-0.1); BASOPHILS % (AUTO) 0.4 %; EOSINOPHILS # (AUTO) 0.6 10^3/uL (0.0-0.7); HGB - HEMOGLOBIN 13.6 g/dL (14.0-18.0); LYMPHOCYTES % (AUTO) 15.8 %; MEAN CORPUSCULAR HEMOGLOBIN 32.2 pg (27.0-31.0); MEAN CORPUSCULAR HGB CONC 31.6 g/dL (32.0-36.0); MEAN CORPUSCULAR VOLUME 101.7 fL (80.0-94.0); MONOCYTES # (AUTO) 1.2 10^3/uL (0.0-1.0); MONOCYTES % (AUTO) 9.8 %; NEUTROPHILS # (AUTO) 8.4 10^3/uL (1.5-6.6); NEUTROPHILS % (AUTO) 68.1 %; PLT - PLATELET COUNT 187 10^3/uL (130-450); RED BLOOD COUNT 4.23 10^6/uL (4.70-6.10); RED CELL DISTRIBUTION WIDTH 14.3 % (12.0-15.0); WHITE BLOOD COUNT 12.3 x10^3/uL (4.8-10.8)
[2019-09-07 12:53] LABS: ALBUMIN 3.9 g/dL (3.2-5.5); BILIRUBIN,TOTAL 0.8 mg/dL (0.2-1.0); TOTAL PROTEIN 7.9 g/dL (6.7-8.2)
[2019-09-07 13:07] LABS: INR 1.5 (0.8-1.2); PT - PROTHROMBIN TIME 16.8 secs (9.9-12.6)
--- NOTE | 2019-09-07 13:16 | XRAY Report ---
Reason: cough Procedure Date: 09/07/2019 Accession Number: [id number] / [id number] Procedure: XR - Chest 2 View X-Ray CPT Code: 95307 FULL RESULT: EXAM: CHEST RADIOGRAPHY EXAM DATE: 09/07/2019 12:29 PM. CLINICAL HISTORY: Cough. COMPARISON: CHEST 2 VIEW 08/28/2019 2:18 AM. TECHNIQUE: 2 views. FINDINGS: Lungs/Pleura: There is elevation of the right hemidiaphragm. There is linear density at the right lung base which is most likely atelectasis. Left lung appears grossly clear. No pneumothorax. Mediastinum: Heart size is normal. There is mild aortic tortuosity. Other: There is a gastric tube with tip overlying the right upper quadrant of the abdomen near the stomach duodenal junction. IMPRESSION: Moderate right diaphragm elevation with right basilar atelectasis. RADIA
--- NOTE | 2019-09-07 13:39 | CT Report ---
Reason: subdural hemorrhage 1 month ago, hypoxia Procedure Date: 09/07/2019 Accession Number: [id number] / [id number] Procedure: CT - HEAD WO CPT Code: FULL RESULT: EXAM: CT HEAD EXAM DATE: 09/07/2019 01:12 PM. CLINICAL HISTORY: Subdural hemorrhage 1 month ago, hypoxia. COMPARISON: None. TECHNIQUE: Multiaxial CT images were obtained from the foramen magnum to the vertex. Reformats: Sagittal and coronal. IV contrast: None. In accordance with CT protocol optimization, one or more of the following dose reduction techniques were utilized for this exam: automated exposure control, adjustment of mA and/or KV based on patient size, or use of iterative reconstructive technique. FINDINGS: Parenchyma: Negative for an acute intracranial hemorrhage. There is no midline shift or herniation. Extraaxial Spaces: There is a superior and posterior right-sided hypodense subdural fluid collection measuring up to 4 mm in thickness consistent with late subacute to chronic subdural hemorrhage. No acute subdural hemorrhage. Ventricles: Normal in size and position. Sinuses and Orbits: Imaged paranasal sinuses, orbits, and mastoids show no significant abnormality. Bones: No evidence of fracture or calvarial defect. Other: None. IMPRESSION: 1. 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 2. No acute intracranial hemorrhage. 3. No significant mass-effect or shift. RADIA
[2019-09-07 14:04] VITALS: BP 120/74
== END 2019-09-07 14:24 | disposition home or self-care (01) ==
LOC: EDUNIT# → ED 10:49
DX: J98.11 Atelectasis (principal); G47.30 Sleep apnea, unspecified; I48.91 Unspecified atrial fibrillation; Z79.01 Long term (current) use of anticoagulants; R53.1 Weakness; Z87.891 Personal history of nicotine dependence; Z86.79 Personal history of other diseases of the circulatory system
CPT/HCPCS: 36415; 70450; 71046; 80053; 83690; 85025; 85610; 94664; 99284

== ENCOUNTER 2019-09-07 14:32 | Outpatient (CLI) | payer MEDICARE | END 2019-09-07 14:33 | LOC: EMS 14:32 | PROVIDERS: ATTEND Surgery | DX: G47.30 Sleep apnea, unspecified (principal); I48.91 Unspecified atrial fibrillation; Z74.01 Bed confinement status; R09.89 Other specified symptoms and signs involving the circulatory and respiratory systems | CPT/HCPCS: A0425; A0427; A0429 ==

== ENCOUNTER 2019-09-08 20:29 | Outpatient (CLI) | payer MEDICARE | END 2019-09-08 20:30 | disposition critical access hospital (66) | LOC: EMS 20:29 | PROVIDERS: ATTEND Surgery | DX: T85.698A Other mechanical complication of other specified internal prosthetic devices, implants and grafts, initial encounter (principal) | CPT/HCPCS: A0425; A0428 ==

== ENCOUNTER 2019-09-08 20:35 | Emergency (ER) | payer MEDICARE ==
--- NOTE | 2019-09-08 21:38 | ED Physician Documentation ---
PD HPI HEENT - Stated complaint Stated Complaint: NG TUBE CLOGGED - Chief complaint Chief Complaint: Heent - History obtained from History obtained from: Patient, Family, EMS - History of Present Illness Timing - onset: Today (84-year-old gentleman from [facility] with an NG feeding tube. Its been clogged today and cannot be flushed.) Review of Systems Constitutional: reports: Reviewed and negative Cardiac: reports: Reviewed and negative Respiratory: reports: Reviewed and negative PD PAST MEDICAL HISTORY - Past Medical History Cardiovascular: None Respiratory: Sleep apnea Neuro: None, Other Endocrine/Autoimmune: None GI: None : None, Other HEENT: Chronic hearing loss, Other Psych: None Musculoskeletal: Osteoarthritis Derm: None - Past Surgical History Past Surgical History: Yes General: Other - Present Medications Home Medications: Ambulatory Orders Medication Instructions Recorded Confirmed Allopurinol 300 mg PO DAILY 03/11/19 08/28/19 Warfarin Sodium 7.5 mg NG QPM 03/11/19 08/28/19 Warfarin Sodium 10 mg NG QPM 03/11/19 08/28/19 Acetaminophen 500 mg NG Q8HR PRN 08/28/19 08/28/19 Amox/Clav 875/125 [Augmentin 1 tab NG BID 08/28/19 08/28/19 875/125] Amoxicillin/Potassium Clav 10 ml PO BID #200 ml 08/28/19 [Amox-Clav 400-57 mg/5 ml Susp] Bisacodyl Supp [Dulcolax Supp] 10 mg KS PRN 08/28/19 Cholecalciferol (Vitamin D3) 1,000 unit NG DAILY 08/28/19 08/28/19 [Vitamin D3] Folic Acid 1 mg NG DAILY 08/28/19 08/28/19 Gabapentin 300 mg NG BID 08/28/19 08/28/19 Ipratropium/Albuterol Sulfate 3 ml IH Q4HR PRN 08/28/19 08/28/19 [Iprat-Albut 0.5-3(2.5) mg/3 ml] Lidocaine Patch 5% [Lidoderm Patch] 1 applic TOP DAILY 08/28/19 08/28/19 Melatonin 6 mg NG QPM 08/28/19 08/28/19 Metoprolol Succinate 100 mg NG BID 08/28/19 08/28/19 Polyethylene Glycol 3350 [Miralax] 17 packet NG DAILY 08/28/19 08/28/19 Sennosides [Senna Laxative] 2 tab NG BID 08/28/19 08/28/19 Tamsulosin HCl [Flomax] 0.8 mg NG DAILY 08/28/19 08/28/19 - Allergies Allergies/Adverse Reactions: Allergies Allergy/AdvReac Type Severity Reaction Status Date / Time lisinopril Allergy Unknown Verified 09/08/19 20:41 - Social History Does the pt smoke?: No Smoking Status: Never smoker Does the pt drink ETOH?: No Does the pt have substance abuse?: No - Immunizations Immunizations are current?: Yes - POLST Patient has POLST: Yes PD ED PE NORMAL - Vitals Vital signs reviewed: Yes - General General: Alert and oriented X 3, No acute distress - HEENT HEENT: Other (C-collar in place from recent surgery. NG tube in place and I am unable to flush it on initial evaluation.) - Psych Psych: Normal mood, Normal affect Results - Vitals Vitals: Vital Signs - 24 hr 09/08/19 09/09/19 09/09/19 20:41 00:20 01:19 Temperature 36.5 C Heart Rate 98 110 H 100 Respiratory 18 16 16 Rate Blood Pressure 118/70 108/73 99/64 O2 Saturation 93 95 95 Oxygen O2 Source Room air PD MEDICAL DECISION MAKING - ED course ED course: I tried a variety of methods to try to unclog the tube. None were successful a nd the NG tube was replaced by the nurse. [facility] on [facility] for placement. Departure - Departure Disposition: 01 Home, Self Care Clinical Impression: Impaired nasogastric feeding tube Qualifiers: Encounter type: initial encounter Qualified Code(s): T85.598A - Other mechanical complication of other gastrointestinal prosthetic devices, implants and grafts, initial encounter Condition: Good Record reviewed to determine appropriate education?: Yes Instructions: Tube NG Care Dc Discharge Date/Time: 09/09/19 01:40
--- NOTE | 2019-09-09 01:12 | XRAY Report ---
Reason: feeding tube placement Procedure Date: 09/09/2019 Accession Number: [id number] / [id number] Procedure: XR - Abdomen 1 View X-Ray CPT Code: 77772 FULL RESULT: EXAM: ABDOMEN RADIOGRAPHY EXAM DATE: 09/09/2019 12:36 AM. CLINICAL HISTORY: Feeding tube placement. COMPARISON: ABDOMEN ACUTE 06/17/2017 3:34 PM. TECHNIQUE: 1 view. FINDINGS: Bowel Gas Pattern: NG tube tip is in the gastric cardia portion of the stomach. The proximal port is close to the GE junction. There is residual contrast throughout the colon. There is several mild to moderately dilated loops of small bowel. Other: None. IMPRESSION: NG tube placed as described. RADIA
[2019-09-09 01:21] VITALS: BP 99/64
== END 2019-09-09 01:40 | disposition home or self-care (01) ==
LOC: ED 20:35
DX: T85.598A Other mechanical complication of other gastrointestinal prosthetic devices, implants and grafts, initial encounter (principal); Y84.8 Other medical procedures as the cause of abnormal reaction of the patient, or of later complication, without mention of misadventure at the time of the procedure
CPT/HCPCS: 43762; 74018

== ENCOUNTER 2019-09-09 01:40 | Outpatient (CLI) | payer MEDICARE | END 2019-09-09 01:41 | LOC: EMS 01:40 | PROVIDERS: ATTEND Surgery | DX: T85.9XXA Unspecified complication of internal prosthetic device, implant and graft, initial encounter (principal); Z74.01 Bed confinement status | CPT/HCPCS: A0425; A0428 ==

== ENCOUNTER 2019-09-13 11:55 | Outpatient (CLI) | payer MEDICARE ==
[2019-09-14 01:39] LABS: ALBUMIN 3.3 g/dL (3.2-5.5); BILIRUBIN,TOTAL 0.9 mg/dL (0.2-1.0); CALCIUM 9.8 mg/dL (8.5-10.3); CREATININE 0.9 mg/dL (0.6-1.2); TOTAL PROTEIN 6.6 g/dL (6.7-8.2)
== END 2019-09-13 23:59 | disposition home or self-care (01) ==
LOC: LAB.R 11:55
PROVIDERS: ATTEND Family Medicine
DX: E63.9 Nutritional deficiency, unspecified (principal)
CPT/HCPCS: 80053

== ENCOUNTER 2019-09-14 10:13 | Outpatient (CLI) | payer MEDICARE | END 2019-09-14 10:14 | disposition critical access hospital (66) | LOC: EMS 10:13 | PROVIDERS: ATTEND Surgery | DX: T85.698A Other mechanical complication of other specified internal prosthetic devices, implants and grafts, initial encounter (principal) | CPT/HCPCS: A0425; A0429 ==

== ENCOUNTER 2019-09-14 10:20 | Observation (INO) | payer MEDICARE ==
--- NOTE | 2019-09-14 12:04 | ED Physician Documentation ---
History of Present Illness - Stated complaint Stated Complaint: CLOGGED NG TUBE - Chief complaint Chief Complaint: General - Additonal information Additional information: This is an 84-year-old male with a history including atrial fibrillation on warfarin, and recent neck surgery for spinal cord compression, who presents with difficulties with his NG tube as well as cough and shortness of breath. Patient was found to have a subdural hemorrhage on August 06, he was transferred to [facility] where an MRI revealed that he had severe cervical compression, he was taken for decompression and had an extended stay in the hospital, he was discharged on August 27. He had an NG tube left in place because the thought was that he will be able to swallow and to be able to be removed in the near future, however the NG tube is been a constant source of problems for him. He has pain and irritation where it is inserted, it is been declogged multiple times over last several weeks, and when giving medications some of the medication gets lost by falling out of the NG tube. His INR has been subtherapeutic at 1.2-1.5 over the last several checks. They report they have been in touch with 's office and would like to have a G-tube placed, because he can no longer deal with frustrations of the NG tube. Patient also states that he has had some increased shortness of breath and coughing fits over the last week. He typically is on a little bit of oxygen for sleep apnea, but he has needed oxygen throughout the day which is new for him. He has had sputum production which has been white to yellow. He denies fever. He has had some intermittent abdominal discomfort, no vomiting. Review of Systems Constitutional: denies: Fever Nose: reports: Other (NG tube with irritation) Cardiac: denies: Chest pain / pressure Respiratory: denies: Dyspnea GI: denies: Abdominal Pain PD PAST MEDICAL HISTORY - Past Medical History Cardiovascular: None Respiratory: Sleep apnea Neuro: None, Other Endocrine/Autoimmune: None GI: None : None, Other HEENT: Chronic hearing loss, Other Psych: None Musculoskeletal: Osteoarthritis Derm: None - Past Surgical History Past Surgical History: Yes General: Other - Present Medications Home Medications: Ambulatory Orders Medication Instructions Recorded Confirmed Allopurinol 300 mg PO DAILY 03/11/19 08/28/19 Warfarin Sodium 7.5 mg NG QPM 03/11/19 08/28/19 Warfarin Sodium 10 mg NG QPM 03/11/19 08/28/19 Acetaminophen 500 mg NG Q8HR PRN 08/28/19 08/28/19 Amox/Clav 875/125 [Augmentin 1 tab NG BID 08/28/19 08/28/19 875/125] Amoxicillin/Potassium Clav 10 ml PO BID #200 ml 08/28/19 [Amox-Clav 400-57 mg/5 ml Susp] Bisacodyl Supp [Dulcolax Supp] 10 mg MT PRN 08/28/19 Cholecalciferol (Vitamin D3) 1,000 unit NG DAILY 08/28/19 08/28/19 [Vitamin D3] Folic Acid 1 mg NG DAILY 08/28/19 08/28/19 Gabapentin 300 mg NG BID 08/28/19 08/28/19 Ipratropium/Albuterol Sulfate 3 ml IH Q4HR PRN 08/28/19 08/28/19 [Iprat-Albut 0.5-3(2.5) mg/3 ml] Lidocaine Patch 5% [Lidoderm Patch] 1 applic TOP DAILY 08/28/19 08/28/19 Melatonin 6 mg NG QPM 08/28/19 08/28/19 Metoprolol Succinate 100 mg NG BID 08/28/19 08/28/19 Polyethylene Glycol 3350 [Miralax] 17 packet NG DAILY 08/28/19 08/28/19 Sennosides [Senna Laxative] 2 tab NG BID 08/28/19 08/28/19 Tamsulosin HCl [Flomax] 0.8 mg NG DAILY 08/28/19 08/28/19 - Allergies Allergies/Adverse Reactions: Allergies Allergy/AdvReac Type Severity Reaction Status Date / Time lisinopril Allergy Unknown Verified 09/14/19 10:32 - Social History Does the pt smoke?: No Smoking Status: Never smoker Does the pt drink ETOH?: No Does the pt have substance abuse?: No - Immunizations Immunizations are current?: Yes - POLST Patient has POLST: Yes PD ED PE NORMAL - Vitals Vital signs reviewed: Yes - General General: Alert and oriented X 3 - HEENT HEENT: Other (NG tube in place in left nostril, this appears clogged.) - Neck Neck: Other (C-collar in place.) - Cardiac Cardiac: Other (Irregularly irregular rhythm, tachycardic.) - Respiratory Respiratory: Other (Bibasilar crackles, intermittent coughing fits, slightly increased work of breathing) - Abdomen Abdomen: Other (Soft, rotund, nontender to palpation in all 4 quadrants.) - Derm Derm: Warm and dry - Extremities Extremities: No deformity - Neuro Neuro: Alert and oriented X 3 - Psych Psych: Normal mood, Normal affect Results - Vitals Vitals: Oxygen O2 Source Room air - Labs Labs: Microbiology 09/14/19 19:28 Blood Culture - Preliminary Blood NO GROWTH AFTER 2 DAYS 09/14/19 19:27 Blood Culture - Preliminary Blood NO GROWTH AFTER 2 DAYS Laboratory Tests 09/14/19 09/14/19 09/14/19 12:59 12:59 19:10 WBC 17.0 H RBC 4.21 L Hgb 13.2 L Hct 42.4 MCV 100.7 H MCH 31.4 H MCHC 31.1 L RDW 13.6 Plt Count 184 MPV 12.0 H Neut # (Auto) 13.9 H Lymph # (Auto) 1.3 L Wirt # (Auto) 1.3 H Eos # (Auto) 0.3 Baso # (Auto) 0.1 Absolute Nucleated RBC 0.00 Nucleated RBC % 0.0 Sodium 145 Potassium 4.5 Chloride 98 L Carbon Dioxide 38 H Anion Gap 9.0 BUN 46 H Creatinine 0.9 Estimated GFR (MDRD) 81 L Glucose 144 H Calcium 10.2 Total Bilirubin 0.9 AST 25 ALT 27 Alkaline Phosphatase 110 Total Protein 7.8 Albumin 3.6 Globulin 4.2 Albumin/Globulin Ratio 0.9 L Lipase 31 Urine Color YELLOW Urine Clarity CLOUDY Urine pH 6.5 Ur Specific Godwin 1.010 Urine Protein 30 H Urine Glucose (UA) NEGATIVE Urine Ketones NEGATIVE Urine Occult Blood NEGATIVE Urine Nitrite NEGATIVE Urine Bilirubin NEGATIVE Urine Urobilinogen 0.2 (NORMAL) Ur Leukocyte Esterase NEGATIVE Urine RBC 0-5 Urine WBC 0-3 Ur Squamous Epith Cells FEW Squamous Amorphous Sediment Few Urine Bacteria Few Ur Microscopic Review INDICATED Urine Culture Comments NOT INDICATED - Rads (name of study) CXR Radiology: Other (Bibasilar opacities) CT abd/pelvis Radiology: Other PD MEDICAL DECISION MAKING - ED course Complexity details: considered differential (NG discomfort, gastritis, aspiration, pneumonia, bronchitis, enteritis, PUD, cholecystitis) ED course: Pt presents and is tachycardic, uncomfortable. Labs are notable for a leukocytosis of 17. He is intermittently hypoxic which has been worsening over the last week. XR shows bibasilar opacities. Given his abdominal discomfort CT obtained and shows no acute abdominal pathology but does show bibasilar infiltrates. He required gentle fluid hydration and a push of metoprolol for rate control, he is in a-fib. We tried to unclog his NG tube in the ED without immediate sucess. Patient was admitted for treatment of presumed pneumonia given cough, infiltrates, new hypoxia. Covered with empiric antibiotics while in the ED. Patient and agree with the plan. His NG tube has been a constant source of frustration for the patient and may be addressed during admission as well. Departure - Departure Disposition: ED Place in Observation Discharge Date/Time: 09/14/19 22:41
[2019-09-14] MEDS ORDERED: SODIUM CHLORIDE 0.9% 500 ML IV STA (12:32)
--- NOTE | 2019-09-14 12:56 | XRAY Report ---
Reason: Congestion and NG discomfort Procedure Date: 09/14/2019 Accession Number: [id number] / [id number] Procedure: XR - Chest 1 View X-Ray CPT Code: 28144 FULL RESULT: EXAM: CHEST RADIOGRAPHY EXAM DATE: 09/14/2019 12:47 PM. CLINICAL HISTORY: Congestion and NG discomfort. COMPARISON: CHEST 2 VIEW 09/07/2019 11:58 AM ABDOMEN 1 VIEW 09/09/2019 12:18 AM. TECHNIQUE: 1 view. FINDINGS: Lungs/Pleura: Elevated right hemidiaphragm again seen. Bibasilar opacities again seen. No pneumothorax. No vascular congestion. Mediastinum: Cardiomegaly. Aortic tortuosity. Other: Orogastric tube again seen present with the tip in the very proximal stomach. IMPRESSION: 1. Hypoventilatory changes with bibasilar opacities favoring scar/atelectasis rather than consolidation without significant change. 2. Orogastric tube similar in position with the tip in the proximal stomach. RADIA
[2019-09-14 13:07] LABS: BASOPHILS # (AUTO) 0.1 10^3/uL (0.0-0.1); BASOPHILS % (AUTO) 0.4 %; EOSINOPHILS # (AUTO) 0.3 10^3/uL (0.0-0.7); EOSINOPHILS % (AUTO) 1.9 %; HGB - HEMOGLOBIN 13.2 g/dL (14.0-18.0); LYMPHOCYTES # (AUTO) 1.3 10^3/uL (1.5-3.5); LYMPHOCYTES % (AUTO) 7.5 %; MEAN CORPUSCULAR HEMOGLOBIN 31.4 pg (27.0-31.0); MEAN CORPUSCULAR HGB CONC 31.1 g/dL (32.0-36.0); MEAN CORPUSCULAR VOLUME 100.7 fL (80.0-94.0); MONOCYTES # (AUTO) 1.3 10^3/uL (0.0-1.0); MONOCYTES % (AUTO) 7.8 %; NEUTROPHILS # (AUTO) 13.9 10^3/uL (1.5-6.6); NEUTROPHILS % (AUTO) 81.8 %; PLT - PLATELET COUNT 184 10^3/uL (130-450); RED BLOOD COUNT 4.21 10^6/uL (4.70-6.10); RED CELL DISTRIBUTION WIDTH 13.6 % (12.0-15.0)
[2019-09-14 13:18] LABS: ALBUMIN 3.6 g/dL (3.2-5.5); ALBUMIN/GLOBULIN RATIO 0.9 (1.0-2.2); BILIRUBIN,TOTAL 0.9 mg/dL (0.2-1.0); CALCIUM 10.2 mg/dL (8.5-10.3); CREATININE 0.9 mg/dL (0.6-1.2); TOTAL PROTEIN 7.8 g/dL (6.7-8.2)
[2019-09-14] MEDS ORDERED: SODIUM CHLORIDE 0.9% 500 ML IV ONE (15:33)
[2019-09-14] MEDS ORDERED: MORPHINE 2 MG/ML CARPUJECT IVP STA (15:33)
[2019-09-14] MEDS ORDERED: IOVERSOL 320 100 ML VIAL IVP ONE ×2 (15:50→16:17)
--- NOTE | 2019-09-14 16:39 | CT Report ---
Reason: Abdominal pain, leukocytosis Procedure Date: 09/14/2019 Accession Number: [id number] / [id number] Procedure: CT - Abdomen/Pelvis W CPT Code: FULL RESULT: EXAM: CT ABDOMEN AND PELVIS EXAM DATE: 09/14/2019 04:14 PM. CLINICAL HISTORY: Abdominal pain, leukocytosis. COMPARISONS: None. TECHNIQUE: Routine helical CT imaging was performed through the abdomen and pelvis. IV contrast: OPTI 320 100ML. Enteric contrast: No. Reconstructions: Coronal and sagittal. In accordance with CT protocol optimization, one or more of the following dose reduction techniques were utilized for this exam: automated exposure control, adjustment of mA and/or KV based on patient size, or use of iterative reconstructive technique. FINDINGS: Lung Bases: Increased lung markings are noted in the lung bases most likely represent scarring or atelectasis. Solid organs: The liver is without evidence of an enhancing mass. The spleen, pancreas, and adrenal glands are without evidence of a mass. The kidneys are without evidence of a mass or hydronephrosis. Peritoneal Cavity/Bowel: The appendix is normal in appearance. Large amount of gas is seen within the distal colon. Pelvic Organs: No mass or cyst is seen within the pelvis. There is no periaortic or pelvic lymphadenopathy. Vasculature: There is atherosclerosis of the aorta and its branches, including the coronary arteries. Bones: Syndesmophytes are seen throughout the thoracic spine. There are degenerative changes of the lumbar spine. IMPRESSION: Large amount of gas within the colon. No evidence of colitis. Atherosclerosis of the aorta and its branches, including the coronary arteries. Increased lung markings in both lung bases, right greater than left that may represent atelectasis or infiltrates. RADIA
[2019-09-14] MEDS ORDERED: METOPROLOL 5 MG/5 ML VIAL IVP STA ×2 (18:01→19:39)
[2019-09-14] MEDS ORDERED: PIPERACILLIN/TAZOBACTAM 3.375 GM in SODIUM CHLORIDE 0.9% MINIBAG 100 ML IV STA (19:17)
[2019-09-14 19:29] LABS: BILIRUBIN,URINE NEGATIVE (NEGATIVE); GLUCOSE, URINE (UA) NEGATIVE (NEGATIVE); KETONES,URINE (UA) NEGATIVE (NEGATIVE); LEUKOCYTE ESTERASE, URINE NEGATIVE (NEGATIVE); NITRITE,URINE NEGATIVE (NEGATIVE); OCCULT BLOOD,URINE NEGATIVE (NEGATIVE); PH,URINE 6.5 PH (5.0-7.5); PROTEIN,URINE 30 mg/dL (NEGATIVE); UROBILINOGEN,URINE 0.2 (NORMAL) E.U./dL (NORMAL)
[2019-09-14 19:43] LABS: CLARITY,URINE CLOUDY (CLEAR)
[2019-09-14 19:44] LABS: AMORPHOUS SEDIMENT,UR Few /LPF; BACTERIA,URINE Few /HPF (None Seen); RBC,URINE 0-5 /HPF (0-5); SQUAMOUS EPITHELIAL CELL,UR FEW Squamous (<= Few)
[2019-09-14] MEDS ORDERED: VANCOMYCIN INJ 1.5 GM in SODIUM CHLORIDE 0.9% 500 ML IV SCH (20:00)
[2019-09-14] MEDS ORDERED: WATER FOR INJECTION,STERILE 40 ML ONE (20:22)
[2019-09-14] MEDS ORDERED: SODIUM CHLORIDE FLUSH 0.9% 10 ML SYRINGE IVP PRN (21:08)
[2019-09-14] MEDS ORDERED: METOPROLOL TARTRATE 25 MG TABLET NG SCH (22:00)
--- NOTE | 2019-09-14 22:00 | HISTORY & PHYSICAL EXAMINATION ---
Chief Complaint - Chief Complaint Chief Complaint: Clogged NG tube History of Present Illness - Admitted From Admitted From:: [facility] - History Obtained From Records Reviewed: Yes History obtained from: Patient, Spouse, ER Physican - History of Present Illness HPI Comment/Other: This is a 84 year old male with a past medical history significant for cervical s/p decompression in July of 2019, atrial fibrillation (on Coumadin) who pr esents from [facility] complaining of a clogged NG tube. He has been at the facility since August 27 after he was discharged from [facility]. He has difficulties with swallowing and was discharged with an NG tube in place. His tells me that this was supposed to be temporary but has remained in place now for over 2 weeks. He is awaiting a video swallow as recommended by speech therapy but this is not scheduled until the second week of September. They saw Dr. Daniel of General Surgery regarding a PEG tube being placed but a decision was made to await the results of the swallow study. The patient has now been since multiple times in the ER for his NG tube being c logged. It was replaced one week ago. He is not sure if he has been able to receive his medications because of this. He did not have tube feedings today and only received a little yesterday because it clogged then as well. He reports no dyspnea or chest pain. He has been having a productive cough for the past week. Denies fevers, chills, nausea, and vomiting. He has been on oxygen at [facility] for the past two weeks. His tells me it was initially only at night but he has been on it throughout the day this past week. She is not sure if they are checking his oxygen saturations or not. He does have RONALD but has not used CPAP for a few years now. In the ER, he was found to be tachycardic in the 110's, tachypnic in the low 20's, and hypoxic with oxygen saturation in the high 80's to low 90's on room air. Labs revealed leukocytosis with a left shift. A chest x-ray was suggestive of atelectasis rather than consolidation. A CT of the abdomen and pelvis was unremarkable. Medicine was consulted for admission given that he was hypoxic and concern for pneumonia. I did speak to the patient and spouse regarding goals of care. He would like to be a DNR. History - Past Medical History Cardiovascular: reports: None, Atrial fibrillation Respiratory: reports: Sleep apnea Neuro: reports: None, Other (Cervical stenosis) Endocrine/Autoimmune: reports: None GI: reports: None : reports: Benign prostate hypertrophy, Other (Bladder cancer) HEENT: reports: Chronic hearing loss, Other Psych: reports: None Musculoskeletal: reports: Osteoarthritis Derm: reports: None MRSA Hx?: No - Past Surgical History Neuro: reports: Other (Cervical decompression) - Family & Social History Living arrangement: custodial Social History Notes: Previously lived at home but has resided at [facility] for last two weeks. Has lived with his on [facility] for 17 years. Previously lived in [place] [facility]. 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 Smoked before but quit in the . No alcohol or drug use. - Substance History Use: Uses substance without health or social issues: NONE - POLST Patient has POLST: Yes Meds/Allgy - Home Medications Home Medications: Ambulatory Orders Medication Instructions Recorded Confirmed Allopurinol 300 mg PO DAILY 03/11/19 08/28/19 Warfarin Sodium 7.5 mg NG QPM 03/11/19 08/28/19 Warfarin Sodium 10 mg NG QPM 03/11/19 08/28/19 Acetaminophen 500 mg NG Q8HR PRN 08/28/19 08/28/19 Amox/Clav 875/125 [Augmentin 1 tab NG BID 08/28/19 08/28/19 875/125] Amoxicillin/Potassium Clav 10 ml PO BID #200 ml 08/28/19 [Amox-Clav 400-57 mg/5 ml Susp] Bisacodyl Supp [Dulcolax Supp] 10 mg ID PRN 08/28/19 Cholecalciferol (Vitamin D3) 1,000 unit NG DAILY 08/28/19 08/28/19 [Vitamin D3] Folic Acid 1 mg NG DAILY 08/28/19 08/28/19 Gabapentin 300 mg NG BID 08/28/19 08/28/19 Ipratropium/Albuterol Sulfate 3 ml IH Q4HR PRN 08/28/19 08/28/19 [Iprat-Albut 0.5-3(2.5) mg/3 ml] Lidocaine Patch 5% [Lidoderm Patch] 1 applic TOP DAILY 08/28/19 08/28/19 Melatonin 6 mg NG QPM 08/28/19 08/28/19 Metoprolol Succinate 100 mg NG BID 08/28/19 08/28/19 Polyethylene Glycol 3350 [Miralax] 17 packet NG DAILY 08/28/19 08/28/19 Sennosides [Senna Laxative] 2 tab NG BID 08/28/19 08/28/19 Tamsulosin HCl [Flomax] 0.8 mg NG DAILY 08/28/19 08/28/19 - Allergies Allergies/Adverse Reactions: Allergies Allergy/AdvReac Type Severity Reaction Status Date / Time lisinopril Allergy Unknown Verified 09/14/19 10:32 Review of Systems - Constitutional Constitutional: reports: Fatigue. denies: Fever, Chills - Ears, Nose & Throat Ears, Nose & Throat: reports: Other (Dysphagia) - Cardiovascular Cariovascular: denies: Palpitations, Chest pain, Edema - Respiratory Respiratory: reports: Cough, Sputum production. denies: SOB at rest, SOB with exertion - Gastrointestinal Gastrointestinal: reports: Diarrhea. denies: Abdominal pain, Constipation, Nausea, Vomiting - Genitourinary Genitourinary: denies: Dysuria, Frequency - Musculoskeletal Musculoskeletal: denies: Muscle pain - Integumentary Integumentary: denies: Rash - Neurological Neurological: reports: General weakness. denies: Focal weakness - All Other Systems All Other Systems: reports: Reviewed and negative Prior Level of Functionality: Previously independent with ADL's. [place] [facility] [place] decompression for cervical stenosis Exam - Vital Signs Reviewed Vital Signs: Yes Vital Signs: Vital Signs x48h Temp Pulse Resp BP Pulse Ox 09/14/19 21:17 100 30 H 137/94 H 96 09/14/19 20:39 98 36 H 136/107 H 89 L 09/14/19 20:19 103 H 25 H 124/92 H 90 L 09/14/19 19:00 112 H 26 H 135/80 H 95 09/14/19 18:42 36.5 C 106 H 28 H 117/87 H 98 09/14/19 18:37 106 H 26 H 110/66 95 09/14/19 18:32 116 H 24 138/100 H 95 09/14/19 18:00 115 H 24 138/96 H 97 10/29/19 17:00 112 H 26 H 110/93 H 97 09/14/19 16:00 123 H 26 H 129/92 H 95 09/14/19 15:00 121 H 24 127/104 H 95 09/14/19 14:29 121 H 26 H 125/86 H 96 - Physical Exam General Appearance: positive: No acute distress, Alert Eyes Bilateral: positive: Normal inspection ENT: positive: Other (NG tube in place that appears clogged) Neck: positive: Other (Cervical collar in place.) Respiratory: positive: No respiratory distress, Rhonchi (Bases.). negative: Wheezes, Rales Cardiovascular: positive: No murmur, Irregularly irregular, Tachycardia. negative: Bradycardia Abdomen: positive: Non-tender. negative: No distention, Tenderness, Guarding, Rebound Skin: positive: Color nml, No rash, Warm, Dry Extremities: positive: No pedal edema Neurologic/Psychiatric: positive: Oriented x3, Motor nml. negative: Disoriented to person, Disoriented to place, Disoriented to time, Weakness Conclusion/Plan - Problem List (1) Aspiration pneumonia Conclusion/Plan: There is concern for aspiration pneumonia given his leukocytosis, cough, and that he has an NG tube in place. He is hypoxic at times but I am not sure if this is pneumonia related or possibly atelectasis and RONALD/OHS contributing to this. He is currently on 1L of oxygen. Will start Zosyn IV given the concern for aspiration. Encourage spirometry use. Will attempt to wean oxygen as tolerated for a goal saturation of 92%. Head of bed at 30 degrees and encourage him to get out of bed and into a chair during the day. Qualifiers: Aspiration pneumonia type: unspecified Laterality: right Lung location: lower lobe of lung Qualified Code(s): J69.0 - Pneumonitis due to inhalation of food and vomit (2) Impaired nasogastric feeding tube Conclusion/Plan: Will attempt to unclog his NG tube but if unsuccessful, will need to consider replacing it. Will ask Speech Therapy to evaluate the patient tomorrow morning as if he needs a video swallow, this can be done. If he ultimately is unable to take PO then he would likely benefit from having a PEG tube placed and this can be done on an outpatient basis. If he is able to take PO, then will remove the NG tube. Qualifiers: Encounter type: initial encounter Qualified Code(s): T85.598A - Other mechanical complication of other gastrointestinal prosthetic devices, implants and grafts, initial encounter (3) RONALD (obstructive sleep apnea) Conclusion/Plan: This is likely contributing to his hypoxia at night and why he was placed on oxygen at night [facility]. Will try CPAP while here in the hospital overnight. (4) Atrial fibrillation Conclusion/Plan: Suspect that he is not rate controlled because he has not been able to receive his oral metoprolol because of the clogged NG tube and not because he is septic. He is on Coumadin but INR is subtherapeutic. Will start him on Lopressor 5mg IV q6h until he is able to take oral Metoprolol. Qualifiers: Atrial fibrillation type: unspecified Qualified Code(s): I48.91 - Unspecified atrial fibrillation (5) History of cervical spinal surgery Conclusion/Plan: He continues to have a Cervical collar in place. Will resume his Gabapentin once he is able to take PO meds. - Lab Results Lab results reviewed: Yes Fish Bones: 09/15/19 05:00 09/15/19 05:00 - Diagnostic Imaging Results Diagnostic Imaging Results: positive: Final report reviewed Core Measures - Anticipated LOS I expect patient to be DC'd or transferred within 96 hours.: Yes - Issues Hospital Issues and Management Plan: Aspiration pneumonia and hypoxic requiring antibiotics. - DVT/VTE - Prophylaxis VTE/DVT Device ordered at admit?: Yes VTE/DVT Prophylaxis med ordered at admit?: Yes
[2019-09-15] MEDS: METOPROLOL 5 MG/5 ML VIAL IVP SCH ×3 (01:08→12:33)
[2019-09-15] MEDS: SODIUM CHLORIDE FLUSH 0.9% 10 ML SYRINGE IVP SCH ×3 (02:30→06:31)
[2019-09-15] MEDS ORDERED: KETOROLAC 15 MG/ML VIAL IVP STA (03:27)
[2019-09-15] MEDS: PIPERACILLIN/TAZOBACTAM 3.375 GM in SODIUM CHLORIDE 0.9% MINIBAG 100 ML IV SCH ×3 (03:45→14:26)
[2019-09-15] MEDS ORDERED: ZINC OXIDE 20% OINT 30 GM TUBE TOP PRN (05:02)
[2019-09-15 05:42] LABS: BASOPHILS # (AUTO) 0.1 10^3/uL (0.0-0.1); BASOPHILS % (AUTO) 0.4 %; EOSINOPHILS # (AUTO) 0.4 10^3/uL (0.0-0.7); EOSINOPHILS % (AUTO) 2.6 %; HGB - HEMOGLOBIN 11.9 g/dL (14.0-18.0); LYMPHOCYTES # (AUTO) 1.1 10^3/uL (1.5-3.5); LYMPHOCYTES % (AUTO) 7.4 %; MEAN CORPUSCULAR HEMOGLOBIN 32.2 pg (27.0-31.0); MEAN CORPUSCULAR HGB CONC 31.4 g/dL (32.0-36.0); MEAN CORPUSCULAR VOLUME 102.7 fL (80.0-94.0); MEAN PLATELET VOLUME 12.6 fL (7.4-11.4); MONOCYTES # (AUTO) 1.2 10^3/uL (0.0-1.0); MONOCYTES % (AUTO) 7.8 %; NEUTROPHILS # (AUTO) 11.9 10^3/uL (1.5-6.6); PLT - PLATELET COUNT 166 10^3/uL (130-450); RED BLOOD COUNT 3.69 10^6/uL (4.70-6.10); RED CELL DISTRIBUTION WIDTH 13.6 % (12.0-15.0); WHITE BLOOD COUNT 14.7 x10^3/uL (4.8-10.8)
[2019-09-15 05:50] LABS: CALCIUM 9.4 mg/dL (8.5-10.3)
[2019-09-15] MEDS ORDERED: DEXTROSE 5%-0.45% NACL 1,000 ML IV SCH (07:00)
[2019-09-15] MEDS ORDERED: PHENOL THROAT SPRAY 177 ML MM PRN (08:51)
[2019-09-15] MEDS ORDERED: HEPARIN 5,000 UNIT/ML VIAL SUBQ SCH (09:00)
[2019-09-15 16:42] VITALS: BP 97/77
--- NOTE | 2019-09-16 10:20 | DISCHARGE SUMMARY ---
Discharge Summary Admit Date: 09/14/19 Discharge Date: 09/15/19 Discharging Provider: PARKER Primary Care Provider: Dr. Young Discharge Disposition: 02 Transfer Acute Care Hosp Discharge Facility Name: [facility] - DIAGNOSES Admission Diagnoses: (1) Aspiration pneumonia (2) Impaired nasogastric feeding tube (3) RONALD (obstructive sleep apnea) (4) Atrial fibrillation (5) History of cervical spinal surgery Discharge Diagnoses with Status of Each Condition: 1) Aspiration pneumonia stable, pt was treated antibiotics in hospital (2) Impaired nasogastric feeding tube transfer [place] high level of care. pt need barium swallow modified study first, per ST's recommendation, and per surgeon's recommendation in out-pt setting. we do not have radiologist to do this study, until two days later possible to have this specialist to do this study. So pt was transferred to [place] to do this study and followup care. pt and pt's were happy to be transferred to have high level of care for pt. (3) RONALD (obstructive sleep apnea) stable (4) Atrial fibrillation stable (5) History of cervical spinal surgery stable - HPI History of Present Illness: refer from Dr. Dang's HPI on 09/14/19 This is a 84 year old male with a past medical history significant for cervical s/p decompression in July of 2019, atrial fibrillation (on Coumadin) who presents from [facility] complaining of a clogged NG tube. He has been at the facility since August 27 after he was discharged from [facility]. He has difficulties with swallowing and was discharged with an NG tube in place. His tells me that this was supposed to be temporary but has remained in place now for over 2 weeks. He is awaiting a video swallow as recommended by speech therapy but this is not scheduled until the second week of September. They saw Dr. Daniel of General Surgery regarding a PEG tube being placed but a decision was made to await the results of the swallow study. The patient has now been since multiple times in the ER for his NG tube being clogged. It was replaced one week ago. He is not sure if he has been able to receive his medications because of this. He did not have tube feedings today and only received a little yesterday because it clogged then as well. He reports no dyspnea or chest pain. He has been having a productive cough for the past week. Denies fevers, chills, nausea, and vomiting. He has been on oxygen at [facility] for the past two weeks. His tells me it was initially only at night but he has been on it throughout the day this past week. She is not sure if they are checking his oxygen saturations or not. He does have RONALD but has not used CPAP for a few years now. In the ER, he was found to be tachycardic in the 110's, tachypnic in the low 20's, and hypoxic with oxygen saturation in the high 80's to low 90's on room air. Labs revealed leukocytosis with a left shift. A chest x-ray was suggestive of atelectasis rather than consolidation. A CT of the abdomen and pelvis was unremarkable. Medicine was consulted for admission given that he was hypoxic and concern for pneumonia. I did speak to the patient and spouse regarding goals of care. He would like to be a DNR. - HOSPITAL COURSE Hospital Course: 1) Aspiration pneumonia stable. pt was treated antibiotics in hospital (2) Impaired nasogastric feeding tube transfer to [place] for high level of care. pt need barium swallow modified study first, per ST's recommendation, and per surgeon's recommendation in out-pt setting. we do not have radiologist to do this study, until two days later possible to have this specialist to do this study. So pt was transferred to [place] to do this study and followup care. pt and pt's were happy to be transferred to have high level of care for pt. (3) RONALD (obstructive sleep apnea) stable (4) Atrial fibrillation stable (5) History of cervical spinal surgery stable - ALLERGIES Allergies/Adverse Reactions: Allergies Allergy/AdvReac Type Severity Reaction Status Date / Time lisinopril Allergy Unknown Verified 09/14/19 10:32 - MEDICATIONS Home Medications: Ambulatory Orders Medication Instructions Recorded Confirmed Allopurinol 300 mg PO DAILY 03/11/19 08/28/19 Warfarin Sodium 7.5 mg NG QPM 03/11/19 08/28/19 Warfarin Sodium 10 mg NG QPM 03/11/19 08/28/19 Acetaminophen 500 mg NG Q8HR PRN 08/28/19 08/28/19 Amox/Clav 875/125 [Augmentin 1 tab NG BID 08/28/19 08/28/19 875/125] Amoxicillin/Potassium Clav 10 ml PO BID #200 ml 08/28/19 [Amox-Clav 400-57 mg/5 ml Susp] Bisacodyl Supp [Dulcolax Supp] 10 mg [place] PRN 08/28/19 Cholecalciferol (Vitamin D3) 1,000 unit NG DAILY 08/28/19 08/28/19 [Vitamin D3] Folic Acid 1 mg NG DAILY 08/28/19 08/28/19 Gabapentin 300 mg NG BID 08/28/19 08/28/19 Ipratropium/Albuterol Sulfate 3 ml IH Q4HR PRN 08/28/19 08/28/19 [Iprat-Albut 0.5-3(2.5) mg/3 ml] Lidocaine Patch 5% [Lidoderm Patch] 1 applic TOP DAILY 08/28/19 08/28/19 Melatonin 6 mg NG QPM 08/28/19 08/28/19 Metoprolol Succinate 100 mg NG BID 08/28/19 08/28/19 Polyethylene Glycol 3350 [Miralax] 17 packet NG DAILY 08/28/19 08/28/19 Sennosides [Senna Laxative] 2 tab NG BID 08/28/19 08/28/19 Tamsulosin HCl [Flomax] 0.8 mg NG DAILY 08/28/19 08/28/19 - PHYSICAL EXAM AT DISCHARGE General Appearance: positive: Alert, Mild distress. negative: Lethargic Eyes Bilateral: positive: Normal inspection, PERRL, No lid inflammation ENT: positive: No signs of dehydration. negative: Purulent nasal drainage Neck: negative: Stiff neck Respiratory: positive: Chest non-tender, No respiratory distress. negative: Wheezes, Rales, Rhonchi Cardiovascular: positive: Regular rate & rhythm, No murmur, No gallop. negative: Irregularly irregular, Extrasystoles, Tachycardia, Bradycardia, JVD present, Systolic murmur, Diastolic murmur Peripheral Pulses: positive: 2+ Abdomen: positive: Non-tender, No organomegaly, Nml bowel sounds, No distention. negative: Tenderness, Guarding, Rebound Back: positive: Nml inspection. negative: CVA tenderness (R), CVA tenderness (L) Skin: positive: Color nml, No rash, Warm, Dry. negative: Cyanosis Extremities: positive: Non-tender. negative: Calf tenderness, Katerin's sign/cords Neurologic/Psychiatric: positive: Oriented x3, Sensation nml, Mood/affect nml. negative: Weakness, Sensory loss, Facial droop, Slurred/abnml speech, Depressed mood/affect - LABS Result Diagrams: 09/15/19 05:00 09/15/19 05:00 - FOLLOW UP Follow Up: pt was transfered to [facility] for high level of care. [facility] arranged the transfer. - TIME SPENT Time Spent in Discharge (Minutes): 55
== END 2019-09-15 17:30 | disposition short-term general hospital (02) ==
LOC: EDUNIT# → ED 10:20 → MS2 21:08
PROVIDERS: ADMIT Internal Medicine; ATTEND Nurse Practitioner Gerontology
DX: T85.598A Other mechanical complication of other gastrointestinal prosthetic devices, implants and grafts, initial encounter (principal); J69.0 Pneumonitis due to inhalation of food and vomit; R09.02 Hypoxemia; R79.1 Abnormal coagulation profile; Y92.129 Unspecified place in nursing home as the place of occurrence of the external cause; R13.10 Dysphagia, unspecified; I48.91 Unspecified atrial fibrillation; G47.33 Obstructive sleep apnea (adult) (pediatric); N40.0 Benign prostatic hyperplasia without lower urinary tract symptoms; Z79.01 Long term (current) use of anticoagulants; Z99.81 Dependence on supplemental oxygen; Z79.899 Other long term (current) drug therapy; Z66 Do not resuscitate; Z85.51 Personal history of malignant neoplasm of bladder; Z87.891 Personal history of nicotine dependence; Z87.39 Personal history of other diseases of the musculoskeletal system and connective tissue
CPT/HCPCS: 36415; 71045; 74177; 80048; 80053; 81001; 83690; 85025; 87040; 96361; 96365; 96366; 96367; 96372; 96375; 96376; 99284; 99285; A9270; G0378; J3370; Q9967; 81003; 87086

== ENCOUNTER 2019-09-15 17:28 | Outpatient (CLI) | payer MEDICARE | END 2019-09-15 17:29 | disposition short-term general hospital (02) | LOC: EMS 17:28 | PROVIDERS: ATTEND Surgery | DX: R13.10 Dysphagia, unspecified (principal); R53.1 Weakness; R06.00 Dyspnea, unspecified | CPT/HCPCS: A0425; A0428 ==

== ENCOUNTER 2019-10-21 08:00 | Outpatient (CLI) | payer MEDICARE ==
[2019-10-21 18:27] LABS: BASOPHILS # (AUTO) 0.1 10^3/uL (0.0-0.1); BASOPHILS % (AUTO) 0.5 %; EOSINOPHILS # (AUTO) 0.4 10^3/uL (0.0-0.7); EOSINOPHILS % (AUTO) 3.9 %; HGB - HEMOGLOBIN 12.5 g/dL (14.0-18.0); LYMPHOCYTES # (AUTO) 1.6 10^3/uL (1.5-3.5); LYMPHOCYTES % (AUTO) 15.3 %; MEAN CORPUSCULAR HEMOGLOBIN 31.2 pg (27.0-31.0); MEAN CORPUSCULAR HGB CONC 30.6 g/dL (32.0-36.0); MEAN PLATELET VOLUME 11.8 fL (7.4-11.4); MONOCYTES # (AUTO) 0.8 10^3/uL (0.0-1.0); MONOCYTES % (AUTO) 7.8 %; NEUTROPHILS # (AUTO) 7.5 10^3/uL (1.5-6.6); NEUTROPHILS % (AUTO) 71.9 %; PLT - PLATELET COUNT 195 10^3/uL (130-450); RED BLOOD COUNT 4.01 10^6/uL (4.70-6.10); RED CELL DISTRIBUTION WIDTH 13.8 % (12.0-15.0); WHITE BLOOD COUNT 10.5 x10^3/uL (4.8-10.8)
[2019-10-21 19:00] LABS: ALBUMIN 3.9 g/dL (3.2-5.5); ALBUMIN/GLOBULIN RATIO 1.1 (1.0-2.2); BILIRUBIN,TOTAL 0.7 mg/dL (0.2-1.0); CALCIUM 9.7 mg/dL (8.5-10.3); TOTAL PROTEIN 7.5 g/dL (6.7-8.2)
== END 2019-10-21 23:59 ==
LOC: LAB.WCP 08:00
PROVIDERS: ATTEND Family Medicine
DX: B37.0 Candidal stomatitis (principal); J69.0 Pneumonitis due to inhalation of food and vomit; R06.09 Other forms of dyspnea
CPT/HCPCS: 36415; 80053; 83880; 85025

== ENCOUNTER 2019-10-25 08:00 | Outpatient (CLI) | payer MEDICARE | END 2019-10-25 23:59 | disposition home or self-care (01) | LOC: LAB.WCP 08:00 | PROVIDERS: ATTEND Physician Assistant Medical | DX: Z79.01 Long term (current) use of anticoagulants (principal); I48.91 Unspecified atrial fibrillation ==

== ENCOUNTER 2019-10-26 07:48 | Outpatient (CLI) | payer MEDICARE | END 2019-10-26 07:49 | disposition short-term general hospital (02) | LOC: EMS 07:48 | PROVIDERS: ATTEND Surgery | DX: R06.00 Dyspnea, unspecified (principal) | CPT/HCPCS: A0425; A0429 ==

== ENCOUNTER 2019-11-29 08:00 | Outpatient (CLI) | payer MEDICARE | END 2019-11-29 23:59 | disposition home or self-care (01) | LOC: LAB.WCP 08:00 | PROVIDERS: ATTEND Physician Assistant Medical | DX: Z79.01 Long term (current) use of anticoagulants (principal); I48.20 Chronic atrial fibrillation, unspecified ==

== ENCOUNTER 2019-12-01 12:00 | Outpatient (CLI) | payer MEDICARE | END 2019-12-01 12:01 | disposition EMS.NT | LOC: EMS 12:00 | PROVIDERS: ATTEND Surgery | DX: R30.9 Painful micturition, unspecified (principal) ==

== ENCOUNTER 2019-12-01 12:21 | Emergency (ER) | payer MEDICARE ==
[2019-12-01 13:08] LABS: BASOPHILS % (AUTO) 0.3 %; EOSINOPHILS # (AUTO) 0.3 10^3/uL (0.0-0.7); EOSINOPHILS % (AUTO) 1.9 %; HGB - HEMOGLOBIN 11.2 g/dL (14.0-18.0); LYMPHOCYTES # (AUTO) 1.7 10^3/uL (1.5-3.5); LYMPHOCYTES % (AUTO) 10.8 %; MEAN CORPUSCULAR HEMOGLOBIN 29.3 pg (27.0-31.0); MEAN CORPUSCULAR HGB CONC 30.8 g/dL (32.0-36.0); MEAN CORPUSCULAR VOLUME 95.3 fL (80.0-94.0); MEAN PLATELET VOLUME 10.7 fL (7.4-11.4); MONOCYTES % (AUTO) 6.3 %; NEUTROPHILS # (AUTO) 12.2 10^3/uL (1.5-6.6); NEUTROPHILS % (AUTO) 79.9 %; PLT - PLATELET COUNT 229 10^3/uL (130-450); RED BLOOD COUNT 3.82 10^6/uL (4.70-6.10); RED CELL DISTRIBUTION WIDTH 14.6 % (12.0-15.0); WHITE BLOOD COUNT 15.2 x10^3/uL (4.8-10.8)
[2019-12-01 13:43] LABS: ALBUMIN 3.3 g/dL (3.2-5.5); ALBUMIN/GLOBULIN RATIO 0.7 (1.0-2.2); BILIRUBIN,TOTAL 0.6 mg/dL (0.2-1.0); CALCIUM 9.3 mg/dL (8.5-10.3); CREATININE 1.1 mg/dL (0.6-1.2); TOTAL PROTEIN 8.1 g/dL (6.7-8.2)
[2019-12-01 14:18] LABS: BILIRUBIN,URINE NEGATIVE (NEGATIVE); GLUCOSE, URINE (UA) NEGATIVE (NEGATIVE); KETONES,URINE (UA) NEGATIVE (NEGATIVE); LEUKOCYTE ESTERASE, URINE SMALL (NEGATIVE); NITRITE,URINE POSITIVE (NEGATIVE); OCCULT BLOOD,URINE LARGE (NEGATIVE); PH,URINE 7.5 PH (5.0-7.5); PROTEIN,URINE >=300 mg/dL (NEGATIVE); UROBILINOGEN,URINE 0.2 (NORMAL) E.U./dL (NORMAL)
[2019-12-01 14:19] LABS: CLARITY,URINE CLOUDY (CLEAR)
[2019-12-01 14:24] LABS: RBC,URINE TNTC /HPF (0-5); SQUAMOUS EPITHELIAL CELL,UR NONE SEEN (<= Few)
[2019-12-01 14:25] LABS: BACTERIA,URINE Few /HPF (None Seen)
[2019-12-01] MEDS ORDERED: FUROSEMIDE 40 MG/4 ML VIAL IVP STA (14:38)
[2019-12-01] MEDS ORDERED: METOPROLOL TARTRATE 50 MG TABLET PO STA (14:38)
[2019-12-01] MEDS ORDERED: METOPROLOL 5 MG/5 ML VIAL IVP STA (14:39)
--- NOTE | 2019-12-01 14:41 | ED Physician Documentation ---
History of Present Illness - Stated complaint Stated Complaint: MALE - Chief complaint Chief Complaint: General - History obtained from History obtained from: Patient, Family () - History of Present Illness Timing: Other (84-year-old gentleman was recently [facility] a [facility] with [facility]TI. He was on a 3-day course of antibiotic and finished up about a week ago. Were not sure what antibiotic it was but over the last 2 days the discomfort at the tip of his penis and urinary frequency have recurred with a vengeance. He denies shortness of breath or chest pain. His vital signs are noted, he is in A. fib with heart rate of about 120. He admits he did not take any of his home meds this morning including his diuretic or his metoprolol. They had trouble getting the pharmacy because of the snow.) Review of Systems Constitutional: denies: Fever, Chills Cardiac: denies: Chest pain / pressure, Palpitations, Pedal edema, Calf pain Respiratory: denies: Dyspnea, Cough GI: denies: Abdominal Pain, Nausea, Vomiting, Diarrhea PD PAST MEDICAL HISTORY - Past Medical History Past Medical History: Yes Cardiovascular: None, Atrial fibrillation Respiratory: Sleep apnea Neuro: None, Other Endocrine/Autoimmune: None GI: None : Benign prostate hypertrophy, Other HEENT: Chronic hearing loss, Other Psych: None Musculoskeletal: Osteoarthritis Derm: None - Past Surgical History Past Surgical History: Yes General: Other Neuro: Other - Present Medications Home Medications: Ambulatory Orders Medication Instructions Recorded Confirmed Warfarin Sodium 7.5 mg NG QPM 03/11/19 08/28/19 Warfarin Sodium 10 mg NG QPM 03/11/19 08/28/19 allopurinoL [Allopurinol] 300 mg PO DAILY 03/11/19 08/28/19 Acetaminophen 500 mg NG Q8HR PRN 08/28/19 08/28/19 Amox/Clav 875/125 [Augmentin 1 tab NG BID 08/28/19 08/28/19 875/125] Amoxicillin/Potassium Clav 10 ml PO BID #200 ml 08/28/19 [Amox-Clav 400-57 mg/5 ml Susp] Bisacodyl Supp [Dulcolax Supp] 10 mg MO PRN 08/28/19 Cholecalciferol (Vitamin D3) 1,000 unit NG DAILY 08/28/19 08/28/19 [Vitamin D3] Folic Acid 1 mg NG DAILY 08/28/19 08/28/19 Gabapentin 300 mg NG BID 08/28/19 08/28/19 Ipratropium/Albuterol Sulfate 3 ml IH Q4HR PRN 08/28/19 08/28/19 [Iprat-Albut 0.5-3(2.5) mg/3 ml] Lidocaine Patch 5% [Lidoderm Patch] 1 applic TOP DAILY 08/28/19 08/28/19 Melatonin 6 mg NG QPM 08/28/19 08/28/19 Metoprolol Succinate 100 mg NG BID 08/28/19 08/28/19 Sennosides [Senna Laxative] 2 tab NG BID 08/28/19 08/28/19 Tamsulosin HCl [Flomax] 0.8 mg NG DAILY 08/28/19 08/28/19 polyethylene glycoL 3350 [Miralax] 17 packet NG DAILY 08/28/19 08/28/19 levoFLOXacin [Levaquin] 250 mg PO DAILY #10 tablet 12/01/19 - Allergies Allergies/Adverse Reactions: Allergies Allergy/AdvReac Type Severity Reaction Status Date / Time lisinopril Allergy Unknown Verified 12/01/19 12:35 - Social History Does the pt smoke?: No Smoking Status: Never smoker Does the pt drink ETOH?: No Does the pt have substance abuse?: No - Immunizations Immunizations are current?: Yes - POLST Patient has POLST: Yes PD ED PE NORMAL - Vitals Vital signs reviewed: Yes - General General: Other (Well-appearing gentleman with some memory problems laying in bed in no distress) - Neck Neck: Supple, no meningeal sign, No bony TTP - Cardiac Cardiac: Other (Slightly irregular and tachycardic without murmur) - Respiratory Respiratory: Other (Rales about third of the way up, nonlabored) - Abdomen Abdomen: Non tender - Extremities Extremities: No edema, No calf tenderness / cord Results - Vitals Vitals: Vital Signs - 24 hr 12/01/19 12/01/19 12/01/19 12:25 14:21 14:59 Temperature 36.1 C L Heart Rate 106 H 136 H 138 H Respiratory 18 20 23 Rate Blood Pressure 116/95 H 121/79 120/88 H O2 Saturation 98 90 L 89 L 12/01/19 12/01/19 12/01/19 15:04 15:09 15:16 Temperature Heart Rate 115 H 103 H 102 H Respiratory 30 H 26 H 32 H Rate Blood Pressure 116/64 101/61 112/72 O2 Saturation 93 94 92 12/01/19 16:16 Temperature Heart Rate 90 Respiratory 23 Rate Blood Pressure 92/69 O2 Saturation 95 Oxygen O2 Source Room air - EKG (time done) 1354 Rate: Rate (enter#) (125) Rhythm: Atrial fibrillation Intervals: LBBB Computer interpretation: Agree with computer - Labs Labs: Laboratory Tests 12/01/19 12/01/19 12/01/19 13:02 13:02 13:02 WBC 15.2 H RBC 3.82 L Hgb 11.2 L Hct 36.4 L MCV 95.3 H MCH 29.3 MCHC 30.8 L RDW 14.6 Plt Count 229 MPV 10.7 Neut # (Auto) 12.2 H Lymph # (Auto) 1.7 [place] # (Auto) 1.0 Eos # (Auto) 0.3 Baso # (Auto) 0.0 Absolute Nucleated RBC 0.00 Nucleated RBC % 0.0 PT 15.5 H INR 1.4 H Sodium 139 Potassium 3.8 Chloride 94 L Carbon Dioxide 34 H Anion Gap 11.0 BUN 28 H Creatinine 1.1 Estimated GFR (MDRD) 64 L Glucose 110 H Calcium 9.3 Total Bilirubin 0.6 AST 27 ALT 20 Alkaline Phosphatase 71 Total Protein 8.1 Albumin 3.3 Globulin 4.8 H Albumin/Globulin Ratio 0.7 L Lipase 29 Urine Color Urine Clarity Urine pH Ur Specific [place] Urine Protein Urine Glucose (UA) Urine Ketones Urine Occult Blood Urine Nitrite Urine Bilirubin Urine Urobilinogen Ur Leukocyte Esterase Urine RBC Urine WBC Ur Squamous Epith Cells Urine Bacteria Ur Microscopic Review Urine Culture Comments 12/01/19 14:00 WBC RBC Hgb Hct MCV MCH MCHC RDW Plt Count MPV Neut # (Auto) Lymph # (Auto) [place] # (Auto) Eos # (Auto) Baso # (Auto) Absolute Nucleated RBC Nucleated RBC % PT INR Sodium Potassium Chloride Carbon Dioxide Anion Gap BUN Creatinine Estimated GFR (MDRD) Glucose Calcium Total Bilirubin AST ALT Alkaline Phosphatase Total Protein Albumin Globulin Albumin/Globulin Ratio Lipase Urine Color LT RED Urine Clarity CLOUDY Urine pH 7.5 Ur Specific [place] 1.025 Urine Protein >=300 H Urine Glucose (UA) NEGATIVE Urine Ketones NEGATIVE Urine Occult Blood LARGE H Urine Nitrite POSITIVE H Urine Bilirubin NEGATIVE Urine Urobilinogen 0.2 (NORMAL) Ur Leukocyte Esterase SMALL H Urine RBC TNTC H Urine WBC 6-10 H Ur Squamous Epith Cells NONE SEEN Urine Bacteria Few Ur Microscopic Review INDICATED Urine Culture Comments INDICATED PD MEDICAL DECISION MAKING - ED course ED course: This is an 84-year-old gentleman who presents with signs and symptoms of UTI corroborated on urinalysis. We will try to get the urine culture from [facility] that he would have had recently to guide us on antibiotics. Also note made that he is in A. fib with RVR with mild CHF, he did not take any of his home meds though and we will give him those. He very much wants to go home. 84-year-old gentleman presents with recurrent UTI, he was only on 3 days of antibiotics and given his gender probably needs a shorter course. He was also in A. fib with RVR but after administration of his home meds which he had missed, his vital signs were much better. We got the urine culture from [facility], it was Enterococcus faecalis, it was sensitive to ampicillin, daptomycin, vancomycin, ciprofloxacin, gentamicin, levofloxacin, linezolid, nitrofurantoin, and streptomycin. It was resistant to tetracycline. He was put on a longer course of levofloxacin for prostatic coverage. Departure - Departure Disposition: 01 Home, Self Care Clinical Impression: Atrial fibrillation Qualifiers: Atrial fibrillation type: longstanding persistent Qualified Code(s): I48.11 - Longstanding persistent atrial fibrillation UTI (urinary tract infection) Qualifiers: Urinary tract infection type: acute cystitis Hematuria presence: without hematuria Qualified Code(s): N30.00 - Acute cystitis without hematuria Condition: Good Record reviewed to determine appropriate education?: Yes Instructions: ED UTI Cystitis Male Prescriptions: levoFLOXacin [Levaquin] 250 mg PO DAILY #10 tablet Comments: Often times when you start antibiotics while you are taking anticoagulants such as Coumadin or warfarin, your INR will go up. You need to have your INR checked frequently while on the antibiotics. Have it checked in 3 days, again in 6 days, and at least weekly while you are on antibiotics. Dose adjustments of your anticoagulants may be necessary. Call your doctor to arrange a follow-up appointment, make the next available appointment. In the interim, return anytime if worse or if new symptoms develop.
[2019-12-01 14:46] LABS: INR 1.4 (0.8-1.2); PT - PROTHROMBIN TIME 15.5 secs (9.9-12.6)
[2019-12-01] MEDS ORDERED: levoFLOXacin 250 MG TABLET PO STA (16:46)
[2019-12-01 17:25] VITALS: BP 124/86
== END 2019-12-01 17:25 | disposition home or self-care (01) ==
LOC: ED 12:21
DX: N30.00 Acute cystitis without hematuria (principal); B95.2 Enterococcus as the cause of diseases classified elsewhere; I48.11 Longstanding persistent atrial fibrillation; Z79.01 Long term (current) use of anticoagulants; I50.9 Heart failure, unspecified; I44.7 Left bundle-branch block, unspecified; Z91.14 Patient's other noncompliance with medication regimen
CPT/HCPCS: 36415; 80053; 81001; 83690; 85025; 85610; 87077; 87086; 87181; 93005; 96374; 96375; 99283; 99284; A9270; 81003

== ENCOUNTER 2019-12-03 08:00 | Outpatient (CLI) | payer MEDICARE | END 2019-12-03 23:59 | disposition home or self-care (01) | LOC: LAB.WCP 08:00 | PROVIDERS: ATTEND Family Medicine | DX: Z79.01 Long term (current) use of anticoagulants (principal); I48.20 Chronic atrial fibrillation, unspecified ==

== ENCOUNTER 2019-12-09 08:00 | Outpatient (CLI) | payer MEDICARE | END 2019-12-09 23:59 | disposition home or self-care (01) | LOC: LAB.WCP 08:00 | PROVIDERS: ATTEND Family Medicine | DX: L03.032 Cellulitis of left toe (principal) | CPT/HCPCS: 87070; 87077; 87181; 87205 ==

== ENCOUNTER 2019-12-17 08:00 | Outpatient (CLI) | payer MEDICARE ==
[2019-12-17 19:09] LABS: CALCIUM 9.5 mg/dL (8.5-10.3); CREATININE 1.3 mg/dL (0.6-1.2)
== END 2019-12-17 23:59 | disposition home or self-care (01) ==
LOC: LAB.WCP 08:00
PROVIDERS: ATTEND Family Medicine
DX: J39.2 Other diseases of pharynx (principal); I48.20 Chronic atrial fibrillation, unspecified; J96.20 Acute and chronic respiratory failure, unspecified whether with hypoxia or hypercapnia; I42.9 Cardiomyopathy, unspecified
CPT/HCPCS: 36415; 80048; 83880

== ENCOUNTER 2019-12-23 08:00 | Outpatient (CLI) | payer MEDICARE | END 2019-12-23 23:59 | disposition home or self-care (01) | LOC: LAB.WCP 08:00 | PROVIDERS: ATTEND Family Medicine | DX: Z79.01 Long term (current) use of anticoagulants (principal); I48.20 Chronic atrial fibrillation, unspecified ==